=== PATIENT | female | born 1980 | race Caucasian/White ===

== ENCOUNTER 2019-09-30 19:57 | Emergency (ER) | payer OTHER, SELFPAY ==
[2019-09-30 20:16] VITALS: BP 152/84; PULSE 80; RESP 18; TEMP 36.8; O2SAT 100
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
[2019-09-30] MEDS: RABIES VACCINE (RABAVERT) 2.5 UNITS VIAL IM (21:28)
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
== END 2019-09-30 21:58 | disposition home or self-care (01) ==
LOC: ANHED 20:55
PROVIDERS: Emergency Provider Emergency Medicine Emergency Medical Services
DX: Z20.3 Contact with and (suspected) exposure to rabies (principal); Z23 Encounter for immunization
CPT/HCPCS: 90471; 90675; 99282

== ENCOUNTER 2021-02-10 08:00 | Outpatient (CLI) | payer OTHER, SELFPAY ==
--- NOTE | ~2021-02-10 | US_ITS ---
US right upper quadrant DATE: 02/10/2021 09:10 INDICATION: Elevated liver enzymes TECHNIQUE: Real-time imaging and Doppler analysis COMPARISON: 04/12/2012 MRI abdomen FINDINGS: The pancreatic head and tail are not optimally visualized; the pancreas is otherwise unrema rkable. 1.3 cm hyperechoic lesion of the liver consistent with 13 mm hemangioma reported on 04/12/2012 MRI abd omen examination. The liver is otherwise unremarkable. Normal hepatopedal portal venous flow directio n. No gallstones, gallbladder wall thickening or abnormal pericholecystic fluid collection. Negative son ographic Taylor's sign. The common bile duct measures 3.6 mm, normal. IMPRESSION: 13 mm hemangioma of the liver Reviewed, dictated and finalized at [facility]. Reviewed, dictated and finalized at location [facility].
--- NOTE | ~2021-02-10 | MM_ITS ---
EXAMINATION: MM screening patricio BI w ramone HISTORY: Screening mammogram TECHNIQUE: Craniocaudal and mediolateral oblique 3-D tomosynthesis images were obtained and synthetic 2-D images were generated. CAD analysis was submitted and interpreted. COMPARISON: None, baseline BREAST PARENCHYMAL COMPOSITION: The breasts are heterogeneously dense, which may obscure small masses . FINDINGS: RIGHT BREAST: There is a 10 mm circumscribed mass in the middle/posterior third of the outer breast 8 cm from the nipple. LEFT BREAST: There is no evidence of suspicious mass, calcification, or architectural distortion to s uggest malignancy. IMPRESSION: 1. Right breast mass. 2. Additional mammographic views and possible breast ultrasound are recommended to evaluate for malig samantha and establish a baseline given that this is the first mammographic examination. BI-RADS Category 0: Incomplete: Needs additional imaging evaluation. Reviewed, dictated and finalized at location A. IMPRESSION: 1. Right breast mass. 2. Additional mammographic views and possible breast ultrasound are recommended to evaluate for malignancy and establish a baseline given that this is the fir st mammographic examination. BI-RADS Category 0: Incomplete: Needs additional imaging evaluation.
== END 2021-02-10 08:01 | disposition home or self-care (01) ==
LOC: ANHIMG 08:03
PROVIDERS: PCP Nurse Practitioner Family; Visit Provider Nurse Practitioner Family
DX: Z12.31 Encounter for screening mammogram for malignant neoplasm of breast (principal); R94.5 Abnormal results of liver function studies; R92.8 Other abnormal and inconclusive findings on diagnostic imaging of breast
CPT/HCPCS: 76705; 77063; 77067

== ENCOUNTER 2021-03-24 11:58 | Outpatient (CLI) | payer OTHER, SELFPAY ==
--- NOTE | ~2021-03-24 | MMUS_ITS ---
EXAMINATION: MM diagnostic patricio RT w ramone, US breast RT limited HISTORY: Right breast mass on screening mammogram TECHNIQUE: Additional 3-D tomosynthesis images of the right breast were performed and synthetic 2-D i mages were generated. CAD analysis was submitted and interpreted. High resolution limited right breas t ultrasound was performed. COMPARISON: 02/10/2021 FINDINGS: MAMMOGRAPHIC FINDINGS: There is a 7 mm round, circumscribed, equal density mass in the middle third of the outer breast at t he 8:00 location 7.5 cm from the nipple. ULTRASOUND: There is a 7 mm cyst at the 8:00 location 7 cm from the nipple responding to the mammographic finding in question. IMPRESSION: 1. No mammographic or sonographic evidence of malignancy. 2. Recommend routine screening mammography in one year. BI-RADS Category 2: Benign finding(s). Reviewed, dictated and finalized at location A. IMPRESSION: 1. No mammographic or sonographic evidence of malignancy. 2. Recommend routine screening mammography in one year. BI-RADS Category 2: Benign finding(s).
== END 2021-03-24 11:59 | disposition home or self-care (01) ==
LOC: ANHIMG 12:02
PROVIDERS: PCP Nurse Practitioner Family; Visit Provider Nurse Practitioner Family
DX: R92.8 Other abnormal and inconclusive findings on diagnostic imaging of breast (principal)
CPT/HCPCS: 76642; 77061; 77065; G0279

== ENCOUNTER 2021-09-05 16:40 | Emergency (ER) | payer OTHER, SELFPAY ==
--- NOTE | 2021-09-05 16:53 | ED.GENADULT ---
HPI - General Adult General Chief complaint: Nausea/Vomiting/Diarrhea Stated complaint: diarrhea,vomiting Time Seen by Provider: 09/05/21 16:53 Source: patient Mode of arrival: ambulatory Limitations: no limitations History of Present Illness HPI narrative: 41-year-old female patient presents to the [facility] with complaints of diarrhea and vomiting since 4 AM this morning. Patient states she was exposed to somebody at work that had influenza. 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 Patient states she did not get her flu shot this year but is fully vaccinated against COVID. Patient was diagnosed with COVID last month. Patient does report a fever as high as 100 off and on today. Patient states she was able to keep down a little bit of Jell-O right before she came in today. Related Data Home Medications Medication Instructions Recorded Confirmed drospirenone (contraceptive) 4 mg PO DAILY 09/05/21 09/05/21 [Slynd] Allergies Allergy/AdvReac Type Severity Reaction Status Date / Time Penicillins Allergy Unknown Verified 09/05/21 17:17 Review of Systems Review of Systems: CONSTITUTIONAL: Positive subjective fever, denies chills, or sweats. EYES: Denies visual changes, redness, or discharge. ENT: Denies rhinorrhea, congestion, sore throat, or otalgia. CARDIOVASCULAR: Denies chest pain, palpitations, or edema. RESPIRATORY: Denies cough or dyspnea. GASTROINTESTINAL: Positive abdominal pain, nausea, vomiting, and diarrhea. GENITOURINARY: Denies dysuria or hematuria. SKIN: Denies rash or itching. MUSCULOSKELETAL: Denies back pain, joint pain, or myalgia. NEUROLOGIC: Denies headache, numbness, or weakness. PSYCHIATRIC: Denies anxiety or depression. [facility] Past Medical History Medical History (Updated 09/05/21 @ 17:34 by KRIHS Srivastava) ADHD Asthma Chronic back pain Crohn's disease Gestational diabetes Seasonal allergies Ulcer Surgical History Surgical History (Updated 09/05/21 @ 16:56 by KRISH Srivastava) Delivery by section Family History Family History Grandparent Family history of lung cancer Family history of heart disease in male family member before age 55 Social History Social History (Reviewed 09/05/21 @ 16:54 by SILVER Srivastava Smoking status: Never smoker Alcohol intake: never Gender identity (if verbalized by the patient): Female Comments At the time of my signature I agree with nursing past medical history, surgical, social, and family history. There is no relevant family history pertinent to the presenting complaint. Exam Narrative: GENERAL: Well-appearing, well-nourished, and in no acute distress. HEAD: Normocephalic, atraumatic. EYES: PERRLA and EOMI. ENT: Nares with erythema edema noted bilaterally, no rhinorrhea or epistaxis. Mucous membranes moist. Posterior pharynx no erythema, tonsillar lodgment, exudates or lesions present. NECK: Supple. No lymphadenopathy CHEST: Clear to auscultation. No respiratory distress. Patient able talk in clear complete sentences HEART: Regular rate and rhythm. No murmur heard. Normal peripheral pulses. ABDOMEN: Soft, nontender, nondistended, hyperactive active bowel sounds. EXTREMITIES: Normal range of motion. No edema. SKIN: Warm, dry, no rash. NEURO: No focal deficits. Alert and oriented x3. Course Course Level of Care: Express Care Visit Reevaluation(s) Reevaluation #1: Reevaluated patient notified her that her influenza test today is negative. Discussed with her we will give him some Zofran to help with the vomiting and she should make sure she gets plenty of fluids if she continues to have issues she will call her primary doctor for further evaluation. Date: 09/05/21 Time: 17:40 Vital Signs Vital signs: Vital Signs Temperature 37.1 C 09/05/21 16:58 Pulse Rate 115 H 09/05/21 16:58 Respiratory Rate 18 09/05/21 16:58 Blood Pressure 114/79 0
[2021-09-05 16:58] VITALS: BP 114/79; PULSE 115; RESP 18; TEMP 37.1; O2SAT 97
== END 2021-09-05 17:40 | disposition home or self-care (01) ==
PROVIDERS: Emergency Provider Nurse Practitioner Family; PCP Nurse Practitioner Family
DX: K52.9 Noninfective gastroenteritis and colitis, unspecified (principal); J45.909 Unspecified asthma, uncomplicated; K50.90 Crohn's disease, unspecified, without complications
CPT/HCPCS: 87804; 99213; G0463

== ENCOUNTER 2023-08-04 07:50 | Emergency (ER) | payer OTHER, MEDICAID, SELFPAY ==
--- NOTE | ~2023-08-04 | XR_ITS ---
Left ankle Technique: AP, oblique, and lateral views were obtained. Clinical History: Pain Findings: There is an acute, transverse, minimally displaced fracture the tip of the lateral malleolu s. No other fracture or dislocation seen. Ankle mortise and other visualized joint spaces are preserv ed. Soft tissues are otherwise unremarkable. Impression: Acute, transverse, minimally displaced fracture of the tip of the lateral malleolus. Reviewed, dictated and finalized at location M. LE DATABASE CONSULTANT Impression: Acute, transverse, minimally displaced fracture of the tip of the lateral malle olus.
[2023-08-04 07:54] VITALS: BP 134/94; PULSE 96; RESP 18; TEMP 36.6; O2SAT 100
--- NOTE | 2023-08-04 08:52 | ED.LOWEXIN ---
HPI - Extremity Injury (Lower) General Chief Complaint: Extremity Injury, Lower Stated Complaint: Left ankle sprain Time Seen by Provider: 08/04/23 08:03 History of Present Illness HPI Narrative: Patient is a 43-year-old female who presents ER with pain to left ankle. She was walking into work when she rolled her ankle and suffered an inversion injury. She has tenderness and swelling over lateral malleolus. No numbness or tingling. She did not fall and strike her head or suffer any additional injury. Related Data Home Medications Medication Instructions Recorded Confirmed drospirenone (contraceptive) 4 mg 4 mg PO DAILY 09/05/21 03/30/23 (28) tablet (Slynd) cholecalciferol (vitamin D3) 125 125 mcg PO WEEKLY 02/22/23 03/30/23 mcg (5,000 unit) capsule fluticasone 100 mcg-salmeterol 50 1 inh inhalation Q12H 02/22/23 03/30/23 mcg/dose blistr powdr for inhalation (Advair Diskus) Allergies Allergy/AdvReac Type Severity Reaction Status Date / Time No Known Allergies Allergy Verified 08/04/23 07:53 Review of Systems ENT: Reports system reviewed and no additional complaints, except as documented Musculoskeletal: Musculoskeletal: Reports arthralgias and Reports joint swelling Neurologic: Denies focal weakness and Denies numbness PMFSH Past Medical History Medical History ADHD Asthma Chronic back pain Crohn's disease Gestational diabetes Seasonal allergies Ulcer Surgical History Surgical History Delivery by section Family History Family History Grandparent Family history of lung cancer Family history of heart disease in male family member before age 55 Social History Social History Smoking status: Never smoker Alcohol intake: never Gender identity (if verbalized by the patient): Female Exam Narrative: GENERAL: Well-appearing, well-nourished, and in no acute distress. HEAD: Normocephalic, atraumatic. EXTREMITIES: Left ankle earlier with tenderness over the base of the lateral malleolus with crepitus. Neurovascular intact. No other point tenderness. NEURO: Alert and oriented x3. PSYCH: Normal mood and affect. Course Course Emergency Course: Patient informed of results. Stirrup splint applied. Neurovascular intact. Discharge with ortho follow-up. Vital Signs Vital signs: Vital Signs Temperature 98 F 08/04/23 07:54 Pulse Rate 96 08/04/23 07:54 Respiratory Rate 18 08/04/23 07:54 Blood Pressure 134/94 H 08/04/23 07:54 Pulse Oximetry 100 08/04/23 07:54 Oxygen Delivery Room Air 08/04/23 07:54 Temperature 98 F 08/04/23 07:54 Pulse Rate 96 08/04/23 07:54 Respiratory Rate 18 08/04/23 07:54 Blood Pressure 134/94 H 08/04/23 07:54 Pulse Oximetry 100 08/04/23 07:54 Oxygen Delivery Room Air 08/04/23 07:54 Procedures Orthopedic Splinting/Casting Injury #1: Splinting/Casting Date: 08/04/23 Splinting/Casting Time: 08:52 Side: left Lower Extremity Injury Location: ankle Lower Extremity Immobilizer: stirrup splint Splint: customized in ED OCL: stirrup Pre-Procedure Neuro Vascular Exam: normal Post-Procedure Neuro Vascular Exam: normal MDM - Extremity Injury (Lower) Imaging Data Radiologist's impression: ITS Impressions Ankle X-Ray 08/04/23 08:25 Impression: Acute, transverse, minimally displaced fracture of the tip of the lateral malleolus. Discharge Plan Discharge Clinical Impression: Ankle fracture, lateral malleolus, closed Patient Disposition: Home, Self-Care Condition: Stable Instructions: Ankle Fracture (ED), Crutch Instructions (ED) Additional Instructions: Bear weight as tolerated. Alter
[2023-08-04 10:21] VITALS: BP 125/80; PULSE 86; RESP 18; O2SAT 100
== END 2023-08-04 10:00 | disposition home or self-care (01) ==
LOC: ANHED 09:29
PROVIDERS: Emergency Provider Emergency Medicine; PCP Nurse Practitioner Family
DX: S82.62XA Displaced fracture of lateral malleolus of left fibula, initial encounter for closed fracture (principal); J45.909 Unspecified asthma, uncomplicated; K50.90 Crohn's disease, unspecified, without complications; X50.9XXA Other and unspecified overexertion or strenuous movements or postures, initial encounter
CPT/HCPCS: 29515; 73610; 99284

== ENCOUNTER 2023-10-21 12:13 | Outpatient (CLI) | payer OTHER, SELFPAY ==
[2023-10-21 12:42] LABS: Basophils Percent Auto 0.3 % (0.2-1.2); Eosinophils Absolute Auto 0.2 K/mm3 (0-0.3); Eosinophils Percent Auto 2.5 % (0-4.4); Hematocrit 41.3 % (37.0-47.0); Hemoglobin 13.4 g/dL (12.0-15.0); Immature Granulocyte Absolute 0.02 K/mm3 (0.00-0.031); Immature Granulocyte Percent A 0.3 % (0-0.5); Lymphocytes Absolute Auto 2.09 K/mm3 (0.9-3.2); Lymphocytes Percent Auto 34.6 % (18.3-44.2); Mean Corpuscular HGB Conc 32.4 g/dl (32-36); Mean Corpuscular Hemoglobin 30.7 pg (26-34); Mean Corpuscular Volume 94.5 fl (80-100); Mean Platelet Volume 9.7 fl (7.4-10.4); Monocytes Absolute Auto 0.3 K/mm3 (0.1-0.6); Monocytes Percent Auto 4.6 % (2.6-8.5); Neutrophils Absolute Auto 3.5 K/mm3 (1.3-6.7); Neutrophils Percent Auto 57.7 % (45.5-73.1); Platelet Count Result 295 k/mm3 (150-375); Red Blood Count 4.37 M/mm3 (4.2-5.4); Red Cell Distribution Width 11.9 % (11.5-14.5)
[2023-10-21 13:32] LABS: LDL Cholesterol Direct 77 mg/dL
[2023-10-21 13:36] LABS: Alanine Aminotransferase 38 U/L (6-35); Albumin Level 4.6 g/dL (3.5-5.1); Alkaline Phosphatase 58 U/L (38-126); Anion Gap 7 mmol/L (8-16); Aspartate Amino Transferase 33 U/L (14-36); Bilirubin,Total 0.7 mg/dL (0.2-1.3); Blood Urea Nitrogen 15 mg/dL (7-17); Calcium 9.6 mg/dL (8.4-10.2); Carbon Dioxide 24 mmol/L (22-30); Chloride 107 mmol/L (98-107); Cholesterol 130 mg/dL (0-200); Estimated Glomerular Filt Rate > 60; Glucose 97 mg/dL (65-110); HDL Direct 38 mg/dL; Potassium 3.7 mmol/L (3.4-5.0); Sodium 138 mmol/L (137-145); Triglycerides 89 mg/dL (<150)
[2023-10-21 13:54] LABS: Free T4 Free Thyroxine 1.01 ng/mL (0.78-2.19)
[2023-10-21 16:13] LABS: Hemoglobin A1C 5.2 % (<5.7)
== END 2023-10-21 12:14 | disposition home or self-care (01) ==
LOC: ANHLAB 12:16
PROVIDERS: PCP Nurse Practitioner Family; Visit Provider Physician Assistant
DX: Z00.00 Encounter for general adult medical examination without abnormal findings (principal); Z13.220 Encounter for screening for lipoid disorders; Z13.1 Encounter for screening for diabetes mellitus; Z13.29 Encounter for screening for other suspected endocrine disorder
CPT/HCPCS: 36415; 80053; 80061; 83036; 84439; 84443; 85025

== ENCOUNTER 2025-01-28 10:17 | Outpatient (CLI) | payer OTHER, SELFPAY ==
[2025-01-28 11:03] LABS: Hematocrit 41.6 % (37.0-47.0); Hemoglobin 13.7 g/dL (12.0-15.0); Mean Corpuscular HGB Conc 32.9 g/dl (32-36); Mean Corpuscular Hemoglobin 30.4 pg (26-34); Mean Corpuscular Volume 92.4 fl (80-100); Mean Platelet Volume 9.9 fl (7.4-10.4); Platelet Count Result 236 k/mm3 (150-375); Red Cell Distribution Width 11.8 % (11.5-14.5); White Blood Count 3.8 K/mm3 (4.5-10.0)
[2025-01-28 11:17] LABS: Cholesterol 140 mg/dL (0-200); HDL Direct 53 mg/dL; Triglycerides 58 mg/dL (<150)
[2025-01-28 11:25] LABS: Alanine Aminotransferase 24 U/L (6-35); Albumin Level 4.6 g/dL (3.5-5.1); Alkaline Phosphatase 44 U/L (38-126); Anion Gap 10 mmol/L (4-12); Aspartate Amino Transferase 26 U/L (14-36); Bilirubin,Total 0.9 mg/dL (0.2-1.3); Blood Urea Nitrogen 16 mg/dL (7-17); CRP. < 0.5 mg/dL (<1.0); Calcium 9.8 mg/dL (8.4-10.2); Carbon Dioxide 25 mmol/L (22-30); Chloride 104 mmol/L (98-107); Estimated Glomerular Filt Rate > 60; Glucose 88 mg/dL (65-110); Potassium 4.2 mmol/L (3.4-5.0); Sodium 139 mmol/L (137-145); Total Protein 7.8 g/dL (6.3-8.2)
[2025-01-28 11:28] LABS: LDL Cholesterol Direct 60 mg/dL
[2025-01-28 11:34] LABS: Erythrocyte Sedimentation Rate 8 mm/hr (0-20)
[2025-01-28 11:35] LABS: Free T4 Free Thyroxine. 1.41 ng/dL (0.78-2.19)
[2025-01-28 11:58] LABS: Hemoglobin A1C. 4.9 % (<5.7)
[2025-01-29 06:09] LABS: Progesterone. 0.5 ng/mL
[2025-01-29 19:38] LABS: DHEA-Sulfate. 239 mcg/dL (15-205); FSH 103.8 mIU/mL
[2025-01-31 15:08] LABS: Immunoglobulin A 202 mg/dL (47-310); TTG IGA AB <1.0 U/mL
== END 2025-01-28 10:18 | disposition home or self-care (01) ==
PROVIDERS: PCP Physician Assistant; Referring Provider Student in an Organized Health Care Education/Training Program; Visit Provider Nurse Practitioner Family
DX: Z00.00 Encounter for general adult medical examination without abnormal findings (principal); K50.00 Crohn's disease of small intestine without complications; R19.7 Diarrhea, unspecified; R10.9 Unspecified abdominal pain; N91.2 Amenorrhea, unspecified; Z13.220 Encounter for screening for lipoid disorders; Z13.1 Encounter for screening for diabetes mellitus; Z13.29 Encounter for screening for other suspected endocrine disorder
CPT/HCPCS: 36415; 80053; 80061; 82627; 82670; 82784; 83001; 83036; 84144; 84403; 84439; 84443; 85027; 85652; 86140

== ENCOUNTER 2025-03-23 07:55 | Outpatient (CLI) | payer OTHER, SELFPAY ==
--- OUTSIDE RECORDS SUMMARY | 2025-03-23 07:59 | XMS_ITS | Clinical Summary ---
Author Organization [facility] Address [address] [place] [id number] Care Team Providers Care Shell Reprint Operator Name Role Phone Unavailable Primary Care Provider Unavailabl e Immunizations Immunization Administration Dates Next Due MODERNA COVID-19 (12+) MRNA, LNP-S, PF, 100 MCG/ 0.5 ML DOSE 09/09/2020,08/12/2020 Social History Tobacco Use Types Packs/Day Years Used Date Smoking Tobacco: Never Assessed Comments Unknown Sex and Gender Information Value Date Recorded Sex Assigned at Not on file Legal Sex Female 7:51 PM CDT Gender Identity Not on file Sexual Orientation Not on file Plan of Treatment Health Maintenance Due Date Last Done Comments Cervical Cancer Screening Pap Smear (Age 30 to 64) Every 3 Years 1981 Annual Physical 01/08/1984 Hepatitis C 1999 Hepatitis B Vaccines (1 of 3 - 19+ 3-dose series) 01/08/2000 HPV Vaccines (1 - 3-dose SCDM series) 01/08/2008 Cervical Cancer Screening Pap with HPV Testing (Age 30 to 64) Every 5 Years 2011 Cervical Cancer Screening with HPV 2011 Mammogram Screening 2021 COVID-19 Vaccine ( season) 2024 09/09/2020, 08/12/2020 DTaP, Tdap and Td Vaccines (2 - Td or Tdap) 12/08/2027 12/07/2017, 04/18/1985, 07/29/1982, Additional history exists Meningococcal B Vaccine Aged Out No l onger eligible based on patient's age to complete this topic Meningococcal Vaccine Aged Out No maribell stefano eligible based on patient's age to complete this topic Pneumococcal Vaccine: Pediatrics (0 to 5 Years) and At-Risk Patients (6 to 49 Years) Aged Out No longer eligible based on patient's age to complete this topic RSV Immunizations Under 20 Months Aged Out No longer eligible based on patient's age to complete this topic
--- OUTSIDE RECORDS SUMMARY | 2025-03-23 07:59 | XMS_ITS | Clinical Summary ---
Author Organization [facility] Address [address] [place] [address] Phone Care Team Providers Care Bi Solutions Architect Name Role Phone Unavailable Primary Care Provider Unavailabl e Allergies Active Allergy Reactions Criticality Noted Date Comments Penicillins Rash,Swelling Low 04/07/2011 Medications levalbuterol (XOPENEX HFA) 45 MCG/ACT Aerosol take 2 Puffs by inhalation every 4 hours as needed. 1 Inhaler 0 6 Active Levonorgest-Eth Estrad -Day 0.15-0.03 MG Tablet 0 9 Active erythromycin with ethanol 2 % SolutionIndicat ions:Rosacea Apply sparingly to the affected area at night. 30 mL 0 Active Active Problems Problem Noted Date Diagnosed Date Rosacea 03/17/2016 Asthma 03/08/2016 Immunizations Immunization Administration Dates Next Due DTP Vaccine 04/18/1985, 2,1981,1980 Influenza Vaccine greater than 3 yrs 04/11/2019, 04/24/2018 MMR Vaccine 05/06/1993,08/13/1982 OPV 04/18/1985, 2,1981,1980 PUR FLU 3+ YRS PRES FREE QUAD IM 10/04/2016 TB Skin Test 03/26/2019,12/15/2017,12/07/2017 TDAP Vaccine 12/07/2017 Family History Medical History Relation Name Comments No Known Problems Brother 1 No Known Problems Brother 2 Cirrhosis Father non alcoholic Heart Attack Father Diabetes Maternal Aunt 1 Diabetes Maternal Aunt 2 Lung Cancer Maternal Grandmother Diabetes Maternal Uncle 1 Diabetes Maternal Uncle 2 Depression Mother Diabetes Mother Mental Disorder, Other Mother agora phobia, anxiety No Known Problems Sister 1 No Known Problems Sister 2 Relation Name Status Comments Brother 1 Alive Brother 2 Alive Father Maternal Aunt 1 Maternal Aunt 2 Maternal Grandmother Maternal Uncle 1 Maternal Uncle 2 Mother Alive Sister 1 Alive Sister 2 Alive Social History Tobacco Use Types Packs/Day Years Used Date Smoking Tobacco: Never Smokeless Tobacco: Never Tobacco Cessation:Counseling Given: Yes Alcohol Use Standard Drinks/Week Comments No 0 (1 standard drink = 0.6 oz pur e alcohol) PHQ-2 Answer Date Recorded PHQ-2 Score 0 04/03/2019 Comments No Sex and Gender Information Value Date Recorded Sex Assigned at Not on file Legal Sex Female 1:48 PM CDT Gender Identity Not on file Sexual Orientation Not on file Last Filed Vital Signs Vital Sign Reading Time Taken Comments Blood Pressure 110/72 11/24/2018 3:05 PM CDT Pulse 95 11/24/2018 3:05 PM CDT Temperature 36.8 C (98.2 F) 11/24/2018 3:05 PM CDT Respiratory Rate 16 11/24/2018 3:05 PM CDT Oxygen Saturation 95% 11/24/2018 3:05 PM CDT Inhaled Oxygen Concentration - - Weight 95 kg (209 lb 8 oz) 11/24/2018 3:05 PM CD T Height 175.3 cm (5' 9) 11/24/2018 3:05 PM CDT Body Mass Index 30.94 11/24/2018 3:05 PM CDT Plan of Treatment Health Maintenance Due Date Last Done Comments Hepatitis C Virus (HCV) Screening 1981 Hepatitis B Immunization (1 of 3 - 19+ 3-dose series) 01/08/2000 Pneumococcal Immunization Combined (1 of 2 - PCV) 01/08/2000 Pap Smear 2002 Human Papillomavirus (HPV) Immunization (1 - 3-dose SCDM series) 01/08/2008 Cervical Cancer Screening (CCS) 2011 HPV/Cotest 2011 SARS-COV-2 Immunization ( season) 2024 09/09/2020, 08/12/2020 Influenza Immunization (#1) 04/01/202504/01, 04/24/2018, 10/04/2016 DTaP/Tdap/Td Immunization (6 - Td or Tdap) 12/08/2027 12/07/2017, 04/18/1985, 07/29/1982, Additional history exists Td Immunization Every 10 Years (Adults With 1 Tdap) 12/08/2027 12/07/2017 Respiratory Syncytial Virus (RSV) Immunization (Adult) (1 - 1-dose 75+ series) 01/08/2056 Meningococcal Immunization (ACWY) Aged Out No longer eligible based on patient's age to complete this topic Rotavirus Immunization Aged Out No lo nger eligible based on patient's age to complete this topic Insurance MEDICAID [employer]
--- OUTSIDE RECORDS SUMMARY | 2025-03-23 07:59 | XMS_ITS | Clinical Summary ---
Author Organization [facility] Address [address] [place] [place] [address] Care Team Providers Care Hadoop Administrator Name Role Phone Kike Heaton MD Primary Care Provider [phone] Source Comments [facility],non-owned Affiliates and Associated Physician Practices is amultiple site organization consisting of ambulatory clinics and hospital sitesin [place], [place]. This disclosure is being madepursuant to the Care Everywhere program and may not contain all information available regarding this patient. Last updated 18.[facility] [employer] Allergies Active Allergy Reactions Criticality Noted Date Comments Penicillins Rash,Swelling Low 04/07/2011 Medications * Be aware that medications may not be up to date on this document. Alwaysverify current medications with the patient. levalbuterol (XOPENEX HFA) 45 MCG/ACT inhaler Inhale 2 Puffs by mouth every 6 hours. Active mesalamine CR (PENTASA) 500 MG capsule Take 500 mg by mouth 3 times daily. Active erythromycin (ERYDERM) 2 % solution 02/17/2018 Active Active Problems Problem Noted Date Diagnosed Date Finger mass, right 04/26/2018 Family History Medical History Relation Name Comments CAD (Coronary Artery Disease) Maternal Grandfather Cancer Maternal Grandmother lung Relation Name Status Comments Maternal Grandfather Maternal Grandmother Social History Tobacco Use Types Packs/Day Years Used Date Smoking Tobacco: Never Smokeless Tobacco: Never Alcohol Use Standard Drinks/Week Comments No 0 (1 standard drink = 0.6 oz pur e alcohol) Comments Unknown Sex and Gender Information Value Date Recorded Sex Assigned at Not on file Legal Sex Female 12:14 PM [employer] Gender Identity Not on file Sexual Orientation Not on file Last Filed Vital Signs Vital Sign Reading Time Taken Comments Blood Pressure 123/88 04/26/2018 9:25 AM CDT Pulse 98 04/26/2018 9:25 AM CDT Temperature 37.1 C (98.7 F) 04/26/2018 9:25 AM CDT Respiratory Rate - - Oxygen Saturation 93% 04/26/2018 9:25 AM CDT Inhaled Oxygen Concentration - - Weight 93.4 kg (206 lb) 04/26/2018 9:25 AM CDT Height 175.3 cm (5' 9) 04/26/2018 9:25 AM CDT Body Mass Index 30.42 04/26/2018 9:25 AM CDT Plan of Treatment Health Maintenance Due Date Last Done Comments LIPID TESTING 1981 MAMMOGRAM 1981 HIV SCREENING 01/08/1996 HEPATITIS C SCREENING 01/03/1999 DTAP/TDAP/TD VACCINES (1 - Tdap) 01/08/2000 HEPATITIS B VACCINE (1 of 3 - 19+ 3-dose series) 01/08/2000 HPV VACCINE (1 - 3-dose SCDM series) 01/08/2008 COVID-19 VACCINE (1 - 2023-2 5 season) 2024 DEPRESSION SCREENING 08/01/2024 INFLUENZA VACCINE (#1) 2025 8, 10/04/2016 ZOSTER VACCINE (1 of 2) 2031 HIB VACCINE Aged Out No longer eligi ble based on patient's age to complete this topic MENINGOCOCCAL (Group B) VACCINE SHARED DECISION-MAKING Aged Out No longer eligible based on patient's age to complete this topic MENINGOCOCCAL GROUPS A/C/Y/W VACCINE Aged Out No longer eligible b ased on patient's age to complete this topic PNEUMOCOCCAL VACCINE Aged Out No long er eligible based on patient's age to complete this topic [place] [address] [place] [address] [place] [address] [facility] Care Teams Hadoop Administrator Relationship Specialty Start Date End Date Kike Heaton MD PCP - General 04/26/18
[2025-03-26 07:08] LABS: Calprotectin, Fecal 82 ug/g (0-120)
== END 2025-03-23 07:56 | disposition home or self-care (01) ==
PROVIDERS: PCP Physician Assistant; Visit Provider Nurse Practitioner Family
DX: K50.00 Crohn's disease of small intestine without complications (principal)
CPT/HCPCS: 83993

== ENCOUNTER 2025-04-24 07:16 | Outpatient (CLI) | payer OTHER, SELFPAY ==
--- NOTE | ~2025-04-24 | US_ITS ---
US abdomen limited Indication: R10.9 - Unspecified abdominal pain Comparison: None Technique: Cordero-scale and color Doppler images were obtained. Findings: LIVER: Right lobe liver echogenic solid lesion 1.6 x 1.7 cm. . GALLBLADDER/BILIARY: Unremarkable.No cholelithiais, wall thickening or pericholecystic fluid. No biliary dilatation. CBD 4.3 mm. [place] sign negative. PANCREAS: Pancreas limited by bowel gas. Right Kidney: Right kidney was not imaged Impression: 1. No etiology to explain abdominal pain. 2. Probable liver hemangioma, correlate with LFTs. Contrast-enhanced MRI is suggested Reviewed, dictated and finalized at location A. Impression: 1. No etiology to explain abdominal pain. 2. Probable liver hemangioma, correlate with LFTs. Contrast-enhanced MRI is sug gested
--- NOTE | ~2025-04-24 | NM_ITS ---
EXAMINATION: [id number] DATE: 04/24/2025 10:46 INDICATION: Postprandial abdominal pain and bloating. COMPARISON: Ultrasound 04/24/2025 TECHNIQUE: 5.59 mCi Tc-99m mebrofenin (Choletec) was administered intravenously. Scintigraphic images of the abdomen were obtained for one hour. Then, the patient drank 8 oz Ensure, and imaging was continued for 60 minutes. FINDINGS: There is normal clearance of radiotracer from the blood pool. There is homogeneous tracer uptake by the liver. Activity progresses to the bowel and gallbladder. Gallbladder ejection fraction (GBEF) was 46%. Note that with this technique, normal GBEF >= 33%. IMPRESSION: 1. Normal hepatobiliary scintigraphy. Reviewed, dictated and finalized at location E.
== END 2025-04-24 07:17 | disposition home or self-care (01) ==
PROVIDERS: PCP Physician Assistant; Visit Provider Nurse Practitioner Family
DX: R10.9 Unspecified abdominal pain (principal); R14.0 Abdominal distension (gaseous)
CPT/HCPCS: 76705; 78226; A9537

== ENCOUNTER 2025-06-03 08:08 | Outpatient (CLI) | payer OTHER, SELFPAY ==
--- NOTE | ~2025-06-03 | MR_ITS ---
EXAMINATION: MR abdomen wo/w con DATE: 06/03/2025 09:19 INDICATION: Liver disease, unspecified. Liver mass. TECHNIQUE: Magnetic resonance imaging (MRI) of the abdomen was performed without and with 14 mL MultiHance intravenous contrast. COMPARISON: Abdomen MRI 04/12/2012, ultrasound 04/24/2025 FINDINGS: There is a 17 mm mass in right hepatic lobe with interrupted peripheral puddling of contrast, consistent with a hemangioma. The gallbladder, spleen, pancreas, adrenal glands, and kidneys are normal. There are no dilated loops of bowel. There are no pathologically enlarged lymph nodes. There is no ascites. IMPRESSION: 1. 17 mm hemangioma in the liver correlating with the ultrasound abnormality. Reviewed, dictated and finalized at location E. [facility]
--- OUTSIDE RECORDS SUMMARY | 2025-06-03 08:16 | XMS_ITS | Data Portability ---
Author Organization [facility], [place] Address [address] [place] [address] [place] [address] Assessment Encounter Date Assessment Date Assessment LastModified by Organization Details LastModified Time 12/22/2020 12/22/2020 Annual gynecological exam performed. Patient will come back in a year unless there are new symptoms. [email or web address] Not available 12/22/2020 10:56:56 Plan of Treatment Reminders Order Date Submit Date Provider Last Modified By Organization Details Last Modified Time Details Appointments None recorded. Lab urinalysis , dipstick 2020 021 [address], [address], [place], [address], 10:32:08 test, urine 2020 021 [email or web address] [place], [address], [place], [address], 11:46:38 Referral None recorded. Procedures None recorded. Surgeries None recorded. Imaging MAMMO, screening, digital, bilateral 2020 021 [email or web address] [facility] [facility], [address] [address], [place], [address], 10:18:14 Medication Orders Macrobid 100 mg capsule 2020 021 [facility] 168, [address], [address], 10:37:49 Pyridium 100 mg tablet 2020 021 [facility] 435, [address], [address], 10:37:50 Slynd 4 mg (28) tablet 2020 021 [facility] 435, [address], [address], 10:37:45 Slynd 4 mg (28) tablet 2020 021 [email or web address] 1 [facility] 435, [address], [address], 11:46:38 Patient TargetsNo targets recorded. Patient InstructionsNo instructions recorded. Reason for Referral None Reported. Results Created Date Observation Date Name Description Value Unit Range Abnormal Flag Note LastModifiedBy Organization Detail LastModifiedTime 12/23/19 21 12/22/2020 pap, IG + HR HPV image guided Pap, HPV regardless of Pap result SEE RESULT S BELOW CASE REPOR T: Cytol ogy Gynec ologi tere Repor t Case: [id number] Autho genoveva sanchez Provi douglas: Wilver Schwartz Colle cted: 12/22 1330 FLOOR REPRESENTATIVE Order ing Locat ion: [place] [facility] Recei tiffanie: 12/23 0018 First Scree n: Parth Luna ed, CT Speci men: Scree ana Pap - Image d, Cervi x STATE MENT OF ADEQU ACY: Satis facto ry for evalu ation Trans forma tion zone compo nent absen t FINAL DIAGN OSIS: Negat brandon for Intra epith elial Lesio n or Elzbieta velarde eriberto d by Parth Luna ed, CT on 2020 at 4:47 PM ----- ----- ----- ----- ----- ----- ----- ----- ----- ----- ----- ----- ----- ----- ----- ----- ----- ---- HPV RESUL TS: HPV mRNA E6/E7 : No HPV mRNA Detec rai NOTE: This high risk HPV mRNA assay detec ts fourt een high- risk HPV types (16, 18, 31, 33, 35, 39, 45, 51, 52, 56, 58, 59, 66, 68) witho ut diffe renti ation . CHART ABLE COMME NT: Note: This speci men was revie wed by a Cytot echno logis t and/o r Patho logis t (as indic ated in this repor t) after evalu ation using the Thinp rep Imagi ng Syste m. CLINI TERE INFOR MATIO N: Menst rual Statu s: LMP (if appli cable ): 2020 Clini tere Histo ry/Pr eviou s Pap: Type of Neopl shawn (if appli cable ): Other Histo ry: Hormo ambar (if appli cable ): PAP EDUCA ANTOINETTE L NOTE: The Pap Test is a scree ana test with an inher ent false negat brandon rate. Liqui d-bas e sampl ing may decre ase, but will not elimi hans, false negat brandon resul ts. A negat brandon resul t does not precl ude the prese nce and/o r devel opmen t of disea se, since the prese nce of abnor mal cells in the sampl e depen ds on the locat ion of the lesio n and sampl ing techn ique. Jolly nued regul ar scree ana is the best metho d of cance r preve ntion . If repor rai cytol ogic findi ng do not corre late with physi tere and/o r histo rical findi ngs, furth er inves tigat ion is recom stepan d, as clini catrachito soto nted. Not Available [facility] (Lab) [address], [place], [address], 12/23/2020 17:50:09 12/23/19 21 12/22/2020 pregn miguel test, urine HCG negati ve Not Available [address], [place], [address], 12/22/2020 11:43:41 03/24/20 21 03/24/2021 URINA LYSIS , WITH MICRO SCOPI C color, urine Yellow colorl ess, light yellow , yellow , dark yellow , straw Not Available [facility] (Lab) [address] [facility], [place], [address], 03/27/2021 00:08:52 03/24/20 21 03/24/2021 URINA LYSIS , WITH MICRO SCOPI C clarity, urine Clear Not Available [facility] (Lab) [address] [facility], [place], [address], 03/27/2021 00:08:52 03/24/20 21 03/24/2021 URINA LYSIS , WITH MICRO SCOPI C glucose, urine Negati ve mg/dL negati ve Not Available [facility] (Lab) [address] [facility], [place], [address], 03/27/2021 00:08:52 03/24/20 21 03/24/2021 URINA LYSIS , WITH MICRO SCOPI C bilirubin, urine Negati ve mg/dL negati ve Not Available [facility] (Lab) [address] [facility], [place], [address], 03/27/2021 00:08:52 03/24/20 21 03/24/2021 URINA LYSIS , WITH MICRO SCOPI C ketones, urine Negati ve mg/dL negati ve Not Available [facility] (Lab) [address] [facility], [place], [address], 03/27/2021 00:08:52 03/24/20 21 03/24/2021 URINA LYSIS , WITH MICRO SCOPI C pH, urine 7.0 . 5.0-9. 0 Not Available [facility] (Lab) [address] [facility], [place], [address], 03/27/2021 00:08:52 03/24/20 21 03/24/2021 URINA LYSIS , WITH MICRO SCOPI C specific gravity, urine 1.017 . 1.001- 1.035 Not Available [facility] (Lab) [address] [facility], [place], [address], 03/27/2021 00:08:52 03/24/20 21 03/24/2021 URINA LYSIS , WITH MICRO SCOPI C blood, urine Modera te negati ve abnormal Not Available [facility] (Lab) [address] [facility], [place], [address], 03/27/2021 00:08:52 03/24/20 21 03/24/2021 URINA LYSIS , WITH MICRO SCOPI C protein, urine 30 mg/dL negati ve abnormal Not Available [facility] (Lab) [address] [facility], [place], [address], 03/27/2021 00:08:52 03/24/20 21 03/24/2021 URINA LYSIS , WITH MICRO SCOPI C urobilinogen , urine <2.0 mg/dL <2.0 Not Available [facility] (Lab) [address] [facility], [place], [address], 03/27/2021 00:08:52 03/24/20 21 03/24/2021 URINA LYSIS , WITH MICRO SCOPI C nitrite, urine Positi ve negati ve abnormal Not Available [facility] (Lab) [address] [place], [address], 03/27/2021 00:08:52 03/24/20 21 03/24/2021 URINA LYSIS , WITH MICRO SCOPI C leukocyte esterase, urine Trace negati ve abnormal Not Available [facility] (Lab) [address] [place], [address], 03/27/2021 00:08:52 03/24/20 21 03/24/2021 URINA LYSIS , WITH MICRO SCOPI C WBC, urine 10-14 /hpf none, 0-5 abnormal Not Available [facility] ([facility]) [address] [facility], [place], [address], 03/27/2021 00:08:52 03/24/20 21 03/24/2021 URINA LYSIS , WITH MICRO SCOPI C RBC, urine 10-14 /hpf none, 0-2 abnormal Not Available [facility] ([facility]) [address] [facility], [place], [address], 03/27/2021 00:08:52 03/24/20 21 03/24/2021 URINA LYSIS , WITH MICRO SCOPI C bacteria, urine Trace /hpf none abnormal Not Available [facility] (Lab) [address] [facility], [place], [address], 03/27/2021 00:08:52 03/24/20 21 03/24/2021 URINA LYSIS , WITH MICRO SCOPI C squamous epithelial cells, urine None /hpf none Not Available [facility] (Lab) [address], [place], [address], 03/27/2021 00:08:52 03/24/20 21 03/24/2021 URINA LYSIS , WITH MICRO SCOPI C mucus, urine Trace /hpf none, trace, few Not Available [facility] ([facility]) [address] [facility], [place], [address], 03/27/2021 00:08:52 03/24/20 21 03/24/2021 CULTU RE: URINE result report SEE RESULT S BELOW abnormal Test: Cultu re: Urine Speci men Sourc e: Urine Voide d Speci men Type: Urine Speci men Date: 2020 4:19 PM Resul t Date: 2020 11:05 PM Resul t Statu s: Final resul t Abnor mal: Yes Resul emma Lab: [facility] [address] [facility] [address] Tel: CULTU RE ----- ----- ----- --- >100, 000 CFU/m l Esche cathi a coli (Abno rmal) SUSCE PTIBI LITY ----- ----- ----- --- Esche cathi a coli METHO D SANIYA ----- ----- ----- ----- ----- ---- ----- ----- ----- ----- ----- - AMIKA FRANCISCO <=16 ug/mL Susce ptibl e AMPIC ILLIN >16 ug/mL Resis tant AMPIC ILLIN /SULB ACTAM >16 ug/mL Resis tant AZTRE ONAM <=4 ug/mL Susce ptibl e CEFAZ RUPESH 16 ug/mL Inter media te CEFEP CARLOS <=2 ug/mL Susce ptibl e CEFOX ITIN <=8 ug/mL Susce ptibl e CEFTA ZIDIM E <=1 ug/mL Susce ptibl e CEFTR IAXON E <=1 ug/mL Susce ptibl e CIPRO FLOXA FRANCISCO <=1 ug/mL Susce ptibl e GENTA MICIN <=1 ug/mL Susce ptibl e LEVOF LOXAC IN <=0.2 5 ug/mL Susce ptibl e MEROP ENEM <=1 ug/mL Susce ptibl e NITRO FURAN TOIN <=32 ug/mL Susce ptibl e PIPER ACILL IN/TA ZOBAC CASTILLO 8 ug/mL Susce ptibl e TOBRA MYCIN <=1 ug/mL Susce ptibl e TRIME THOPR IM/CAMARA LFAME THOXA ZOLE <=2 ug/mL Susce ptibl e Not Available [facility] (Lab) [address], [place], [address], 03/27/2021 00:08:53 03/24/2003/24/2021 urina lysis , dipst ick Leukocytes + Not Available [address], [place], [address], 03/24/2021 10:31:14 03/24/20 21 03/24/2021 urina lysis , dipst ick Nitrite neg Not Available [place] [address], [place], [address], 03/24/2021 10:31:14 03/24/20 21 03/24/2021 urina lysis , dipst ick Urobilinogen neg Not Available [facility] [address], [place], [address], 03/24/2021 10:31:14 03/24/20 21 03/24/2021 urina lysis , dipst ick Protein 30 + Not Available [place] [address], [place], [address], 03/24/2021 10:31:14 03/24/20 21 03/24/2021 urina lysis , dipst ick pH 8 Not Available [place] [address], [place], [address], 03/24/2021 10:31:14 03/24/20 21 03/24/2021 urina lysis , dipst ick Blood +++ Not Available [place] [address], [place], [address], 03/24/2021 10:31:14 03/24/20 21 03/24/2021 urina lysis , dipst ick Specific [place] 1.005 Not Available [facility] [address], [place], [address], 03/24/2021 10:31:14 03/24/20 21 03/24/2021 urina lysis , dipst ick Ketone neg Not Available [place] [address], [place], [address], 03/24/2021 10:31:14 03/24/20 21 03/24/2021 urina lysis , dipst ick Bilirubin neg Not Available Bonita jiang [address], [place], [address], 03/24/2021 10:31:14 03/24/20 21 03/24/2021 urina lysis , dipst ick Glucose neg Not Available [place] [address], [place], [address], 03/24/2021 10:31:14 03/24/20 21 03/24/2021 urina lysis , dipst ick Appearance cloudy Not Available [facility] [address], [place], [address], 03/24/2021 10:31:14 03/24/20 21 03/24/2021 urina lysis , dipst ick Color straw Not Available [place] [address], [place], [address], 03/24/2021 10:31:14 Result Notes None recorded. Problems Name Problem SNOMED Code Status Onset Date Resolution Date Notes Provider Name and Address Organization Details Recorded Time Zayra weaver medical examinat ion Completed 201012/22/2020 Gynecolog ical Examinati on;Record ed Elsewhere : No Locati on: [facility] So urce: EHR Chron ic: N Practic e ID: 0001 Bill able Time: 10:45:00 AM Munira negrete [facility] 10:59:24 Vaginiti s and vulvovag initis Completed 201012/22/2020 Vaginitis ;Recorded Elsewhere : No Locati on: [facility] So urce: EHR Chron ic: N Practic e ID: 0001 Bill able Time: 10:45:00 AM Munira negrete [facility] 10:59:37 Screenin g for malignan t neoplasm of cervix Completed 201012/22/2020 Screening for malignant neoplasms of the cervix;Re corded Elsewhere : No Locati on: [facility] So urce: EHR Chron ic: N Practic e ID: 0001 Bill able Time: 10:45:00 AM Munira Torres [facility] 10:59:17 Threaten ed miscarri age [id number] Completed 201012/22/2020 Threatene d , antepartu m;Practic e ID: 0001 Munira Torres [facility] 10:59:25 Malaise and fatigue [id number] Completed 201012/22/2020 Fatigue And Malaise;P ractice ID: 0001 Munira Torres [facility] 10:59:03 Ill-defi nohemi intestin al infectio n Completed 201112/22/2020 No Show Fee;Pract ice ID: 0001 Munira Torres [facility] 10:58:55 Pregnanc y test positive [id number] Completed 201212/22/2020 examinati on or test, positive result;Re corded Elsewhere : No Locati on: [facility] So urce: EHR Chron ic: N Practic e ID: 0001 Bill able Time: 08:30:00 AM Munira Torres [facility] 10:59:11 Finding related to pregnanc y Completed 201212/22/2020 CERVICAL SHORTENIN G-ANTE;Re corded Elsewhere : No Locati on: [facility] So urce: EHR Chron ic: N Practic e ID: 0001 Bill able Time: 03:00:00 PM Munira Torres [facility] 10:58:49 Uterine size for dates discrepa ncy [id number] Completed 201212/22/2020 UTERINE SIZE VALENTINA-ANTEP AR;Practi ce ID: 0001 Munira negrete, [facility] 10:59:34 Ultrason ography Completed 201212/22/2020 screening for malformat ion using ultrasoni cs;Record ed Elsewhere : No Locati on: [facility] So urce: EHR Chron ic: N Practic e ID: 0001 Bill able Time: 04:00:00 PM Munira negrete [facility] 10:59:29 Antenata l screenin g Completed 201212/22/2020 screening for malformat ion using ultrasoni cs;Record ed Elsewhere : No Locati on: [facility] So urce: EHR Chron ic: N Practic e ID: 0001 Bill able Time: 04:00:00 PM Munira Torres [facility] 10:58:27 Congenit al malforma tion [id number] Completed 201212/22/2020 screening for malformat ion using ultrasoni cs;Record ed Elsewhere : No Locati on: [facility] So urce: EHR Chron ic: N Practic e ID: 0001 Bill able Time: 04:00:00 PM Munira negrete [facility] 10:58:39 Routine antenata l care Completed 201212/22/2020 Supervisi on of other normal ;Recorded Elsewhere : No Locati on: [facility] So urce: EHR Chron ic: N Practic e ID: 0001 Bill able Time: 02:00:[address] [facility] 10:59:15 Cervical incompet ence with antenata l problem [id number] Completed 201212/22/2020 Incompete nt Cervix Antepartu m Condition ;Recorded Elsewhere : No Locati on: [facility] So urce: EHR Chron ic: Y Practic e ID: 0001 Bill able Time: 02:00:00 PM Munira negrete [facility] 10:58:31 Prolapse of female genital organs [id number] Completed 201212/22/2020 Incompete nce or weakening of pubocervi tere tissue;Pr actice ID: 0001 [facility] 10:59:12 Deliveri es by [id number] Completed 201212/22/2020 delivery, without mention of indicatio n, unspecifi ed as to episode of care;Prac francis ID: 0001 Munira Torres [facility] 10:58:40 Female genital organ symptoms [id number] Completed 201212/22/2020 Unspecifi ed symptom associate d with female genital organs;Pr actice ID: 0001 Munira Torres [facility] 10:58:47 Complica tion related to pregnanc y Completed 201212/22/2020 Unspecifi ed antepartu m complicat ion;Pract ice ID: 0001 Munira Torres [facility] 10:58:35 Known OR suspecte d abnormal ity affectin g manageme nt of mother Completed 201212/22/2020 Unspecifi ed suspected abnormali ty, affecting managemen t of mother, unspecifi ed as to episode of care;Kirill rded Elsewhere : No Locati on: [facility] So urce: EHR Chron ic: N Practic e ID: 0001 Bill able Time: 11:00:00 AM Munira Torres [facility] 10:59:01 High risk pregnanc y care Completed 201212/22/2020 Supervisi on of unspecifi ed high-risk ;Recorded Elsewhere : No Locati on: [facility] So urce: EHR Chron ic: Y Practic e ID: 0001 Bill able Time: 10:30:00 AM Munira Torres null, [facility] 10:58:50 Complica tion of pregnanc y, childbir th and/or puerperi um [id number] Completed 201212/22/2020 Other current condition s classifia ble elsewhere of mother, antepartu m;Practic e ID: 0001 Munira negrete, [facility] 10:58:34 Threaten ed prematur e labor - not delivere d [id number] Completed 201212/22/2020 Threatene d premature labor, antepartu m;Practic e ID: 0001 Munira negrete, [facility] 10:59:27 Cervical incompet ence [id number] Completed 201212/22/2020 Incompete nce of cervix;Pr actice ID: 0001 Munira negrete, [facility] 10:58:29 Uterine scar from previous surgery in pregnanc y, childbir th and the puerperi um - delivere d [id number] Completed 201212/22/2020 Previous delivery, antepartu m condition or complicat ion;Pract ice ID: 0001 Munira negrete, [facility] 10:59:33 Single live from singleto n pregnanc y [id number] Completed 201212/22/2020 Mother with single liveborn; Practice ID: 0001 Munira negrete, [facility] 10:59:19 Postoper ative follow-u p visit Completed 201212/22/2020 Follow-up examinati on, following unspecifi ed surgery;R ecorded Elsewhere : No Locati on: [facility] So urce: EHR Chron ic: N Practic e ID: 0001 Bill able Time: 03:00:00 PM Munira negrete [facility] 10:59:04 Postpart um care Completed 201312/22/2020 Post Followup; Recorded Elsewhere : No Locati on: [facility] So urce: EHR Chron ic: N Practic e ID: 0001 Bill able Time: 03:15:00 PM Munira Torres [facility] 10:59:06 Insertio n of intraute rine contrace ptive device Completed 201312/22/2020 INSERTION OF IUD;Recor ded Elsewhere : No Locati on: [facility] So urce: EHR Chron ic: N Practic e ID: 0001 Bill able Time: 03:00:00 PM Munira [facility] 10:58:57 Family planning surveill ance Completed 201312/22/2020 Contracep tive surveilla nce, unspecifi ed;Record ed Elsewhere : No Locati on: [facility] So urce: EHR Chron ic: N Practic e ID: 0001 Bill able Time: 01:45:00 PM Munira [facility] 10:58:46 Uses IUD (intraut erine device) contrace ption [id number] Completed 201312/22/2020 Surveilla nce of intrauter ine contracep tive device;Pr actice ID: 0001 Munira [facility] 10:58:58 Conducti on disorder of the heart [id number] Completed 201312/22/2020 Bradycard ia;Record ed Elsewhere : No Locati on: [facility] So urce: EHR Chron ic: N Practic e ID: 0001 Bill able Time: 03:02:35 PM Munira [facility] 10:58:37 Human papillom a virus infectio n [id number] Completed 201412/22/2020 HPV infection ;Recorded Elsewhere : No Locati on: [facility] So urce: EHR Chron ic: N Practic e ID: 0001 Bill able Time: 10:30:00 AM Munira negrete [facility] 10:58:52 Adult health examinat ion Completed 201412/22/2020 Routine general medical examinati on at a health care facility; Practice ID: [address] [facility] 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 10:59:22 Acetonur ia [id number] Completed 201712/22/2020 Acetonuri a;Recorde d Elsewhere : No Locati on: [facility] So urce: EHR Chron ic: N Practic e ID: 0001 Bill able Time: 01:00:[address] [facility] 10:58:24 Uses combined oral contrace ption [id number] Completed 201812/22/2020 Encounter for initial prescript ion of contracep tive pills;Rec orded Elsewhere : No Locati on: [facility] So urce: EHR Chron ic: N Practic e ID: 0001 Bill able Time: 03:00:[address] [facility] 10:58:32 Removal of intraute rine device Completed 201812/22/2020 Encounter for removal of intrauter ine contracep tive device;Pr actice ID: [address] [facility] 10:59:[address] Concept Completed 201812/22/2020 Encntr for general adult medical exam w/o abnormal findings; Recorded Elsewhere : No Locati on: [facility] So urce: EHR Chron ic: N Practic e ID: 0001 Bill able Time: 02:30:[address] [facility] 10:59:21 Evaluati on finding Completed 201812/22/2020 Hematuria , unspecifi ed;Record ed Elsewhere : No Locati on: [facility] So urce: EHR Chron ic: N Practic e ID: 0001 Bill able Time: 08:45:[address] [facility] 10:58:42 Urinary tract infectio us disease [id number] Completed 201812/22/2020 UTI;Recor ded Elsewhere : No Locati on: [facility] So urce: EHR Chron ic: N Practic e ID: 0001 Bill able Time: 08:45:00 AM Munira Torres [facility] 10:59:30 Pregnanc y test negative [id number] Completed 201812/22/2020 Encounter for test, result negative; Recorded Elsewhere : No Locati on: [facility] So urce: EHR Chron ic: N Practic e ID: 0001 Bill able Time: 10:30:[address] [facility] 10:59:08 Human papillom avirus deoxyrib onucleic acid detected , high risk on cervical specimen [id number] Completed 201812/22/2020 Cervical high risk HPV DNA test positive; Recorded Elsewhere : No Locati on: [facility] So urce: EHR Chron ic: N Practic e ID: 0001 Bill able Time: 10:30:[address] [facility] 10:58:54 Evaluati on finding Completed 201812/22/2020 Unsp abnormal cytolog findings in specmn from cervix uteri;Rec orded Elsewhere : No Locati on: [facility] So urce: EHR Chron ic: N Practic e ID: 0001 Bill able Time: 10:30:00 AM [facility] 1 10:58:44 Problem Notes None recorded. Procedures Surgical History Date Name Laterality Status Provider Name and Address Organization Details Recorded Time 1 Date of Last Pap Smear completed [facility] 03/24/2021 10:32:39 9 Colposcopy completed [facility] 03/24/2021 10:34:50 3 delivery completed [facility] 12/22/2020 11:10:15 9 completed [facility] 12/22/2020 10:57:18 9 Date of Last Colonoscopy completed [facility] 12/22/2020 10:57:18 8 Caesarean Section completed [facility] 12/22/2020 11:09:59 Colonoscopy completed [facility] 12/22/2020 10:57:30 Imaging Results None recorded. Procedure Notes None recorded. Medical Equipment None Reported. Allergies Allergen ID Allergen Name Allergen Category Reaction Reaction Severity Criticality Documentation Date Start Date Code Code System Note Provider Name and Address Organization Details Recorded Time 33433 Product containin g penicilli n (product) medicatio n Not available Not available Not available 07/18/2020 55516 8001 SNOMED Comme nt: Locat ion: Janieleticia gonsalez [facility]; [facility] Available [facility] 14:20:49 Medications Name Sig Start Date Stop Date Status Note LastModified by Organization Details LastModified Time Prometriu m 200 mg capsule take 1 capsule (200MG) by Vaginal route every day 01/14 completed Prescrib ed Elsewher e: No Locat ion: Bonita jiang [facility] odify By: tgingric h Encoun ter DateTime : 01/04/20 13 04:15:00 PM Not Available Not Available Not Available Mirena 21 mcg/24 hr (up to 8 years) 52 mg intrauter ine device 1 iud for 5 years 10/31 completed Prescrib ed Elsewher e: No Locat ion: [facility] odify By: [email or web address] Encount er DateTime : 11/01/19 19 03:00:00 PM Not Available Not Available Not Available Pentasa 250 mg capsule,c ontrolled release take 4 capsule by oral route 4 times every day 07/04 completed Prescrib ed Elsewher e: Yes Loca tion: [facility] odify By: [email or web address] luna DateTime : 04/20/20 11 10:45:00 AM Not Available Not Available Not Available azithromy francisco 250 mg tablet TAKE 2 TABLETS BY MOUTH ON DAY 1 AND THEN TAKE 1 TABLET BY MOUTH ONCE A DAY ON DAY 2 THROUGH DAY 5 12/22 completed Not Available Not Available Not Available albuterol sulfate 1.25 mg/3 mL solution for nebulizat ion inhale 3 millilit er by inhalati on route 3- 4 times every day via nebulize r active Prescrib ed Elsewher e: Yes Loca tion: [facility] odify By: inga luna DateTime : 09/28/19 18 01:00:00 PM Not Available Not Available Not Available bacitraci n zinc 500 unit/gram topical ointment APPLY TOPICALL Y TO THE AFFECTED AREA 1 TO 2 TIMES DAILY active Not Available Not Available No t Available Procardia 10 mg capsule take 1 capsule (10MG) by oral route 3 times every day 07/04 completed Prescrib ed Elsewher e: No Locat ion: [facility] odify By: vicky luna DateTime : 02/07/20 13 10:34:01 AM Not Available Not Available Not Available Metrogel Vaginal 0.75 % (37.5 mg/5 gram) insert 1 applicat orful (37.5MG) by vaginal route every day at bedtime 07/04 completed Prescrib ed Elsewher e: No Locat ion: [facility] odify By: vicky Jiang ncounter DateTime : 04/28/20 11 04:41:13 PM Not Available Not Available Not Available Zoloft 50 mg tablet take 1 tablet (50MG) by oral route every day 07/04 completed Prescrib ed Elsewher e: No Locat ion: [facility] odify By: vicky Jiang ncounter DateTime : 05/04/20 13 10:30:00 AM Not Available Not Available Not Available phenazopy ridine 100 mg tablet Take 1 tablet 3 times a day by oral route as needed for 7 days. active Not Available Not Available No t Available Advair Diskus 250 mcg-50 mcg/dose powder for inhalatio n INHALE 1 PUFF BY MOUTH TWICE DAILY active Not Available Not Available No t Available ergocalci ferol (vitamin D2) 1,250 mcg (50,000 unit) capsule TAKE 1 CAPSULE BY MOUTH EVERY WEEK active Not Available Not Available No t Available ibuprofen 600 mg tablet take 1 tablet (600MG) by oral route every 6 hours as needed with food 08/02 completed Prescrib ed Elsewher e: No Locat ion: [facility] odify By: francoise Chungo unter DateTime : 06/26/20 13 01:30:00 PM Not Available Not Available Not Available methylpre dnisolone 4 mg tablets in a dose pack 12/22 completed Not Available Not Available Not Available Terazol 7 0.4 % vaginal cream insert 1 applicat orful by vaginal route every day for 7 days at bedtime 08/22 completed Prescrib ed Elsewher e: No Locat ion: [facility] odify By: regan Jiang ncounter DateTime : 08/12/19 15 10:30:00 AM Not Available Not Available Not Available Appleton 5 mg-325 mg tablet take 1 tablet by oral route every 6 hours as needed for pain 08/02 completed Prescrib ed Elsewher e: No Locat ion: [facility] odify By: francoies vila Enco unter DateTime : 06/26/20 13 01:30:00 PM Not Available Not Available Not Available fluticaso ne propionat e 50 mcg/actua tion nasal spray,osman pension SHAKE LIQUID AND USE 1 TO 2 SPRAYS IN EACH NOSTRIL TWICE DAILY active Not Available Not Available No t Available Xopenex 0.31 mg/3 mL solution for nebulizat ion 09/28 completed Prescrib ed Elsewher e: Yes Loca tion: [facility] odify By: inga Jiang ncounter DateTime : 04/20/20 11 10:45:00 AM Not Available Not Available Not Available Bactrim DS 800 mg-160 mg tablet take 1 tablet by oral route every 12 hours 10/31 completed Prescrib ed Elsewher e: No Locat ion: [facility] odify By: [email or web address] Encount er DateTime : 09/28/19 18 01:00:00 PM Not Available Not Available Not Available erythromy francisco with ethanol 2 % topical solution APPLY SPARINGL Y TOPICALL Y TO AFFECTED AREA ONCE DAILY AT NIGHT 12/22 completed Not Available Not Available Not Available nitrofura ntoin monohydra te/macroc rystals 100 mg capsule take 1 capsule by oral route every 12 hours with food x 7 days active Not Available Not Available No t Available erythromy francisco 03/24 completed Not Available Not Available Not Available Seasoniqu e 0.15 mg-30 mcg (84)/10 mcg(7) tablets,3 month dose pack take 1 tablet by oral route every day 12/22 completed Prescrib ed Elsewher e: No Locat ion: [facility] odify By: marsha quinonez DateTime : 07/18/20 19 03:22:03 PM Not Available Not Available Not Available Quasense 0.15 mg-30 mcg (91) tablets,3 month dose pack take 1 tablet by oral route every day 12/22 completed Prescrib ed Elsewher e: No Locat ion: [facility] odify By: marsha quinonez DateTime : 01/30/20 19 09:32:18 AM Not Available Not Available Not Available Symbicort 160 mcg-4.5 mcg/actua tion HFA aerosol inhaler INHALE 2 PUFFS BY MOUTH TWICE DAILY active Not Available Not Available No t Available Fish Oil 360 mg-1,200 mg capsule 08/12 completed Prescrib ed Elsewher e: Yes Loca tion: [facility] odify By: ann quinonez DateTime : 04/20/20 11 10:45:00 AM Not Available Not Available Not Available Triveen-D uo DHA 29 mg-1 mg-400 mg oral pack take 1 by Oral route every day 08/12 completed Prescrib ed Elsewher e: No Locat ion: [facility] odify By: ann quinonez DateTime : 04/04/20 13 02:36:58 PM Not Available Not Available Not Available Slynd 4 mg (28) tablet Take 1 tablet every day by oral route. 2023 active Not Available Not Available Not Avai lable Vitals Date Recorded Systolic And Diastolic Provider Name and Address Organization Details Last Updated DateTime 12/22/2020 133/80 mm[Hg] Jennifer Atkins [facility] [address], [place], [address], [facility] 12/22/2020 11:40:34 Date Recorded Body height Body mass index (BMI) Body weight Provider Name and Address Organization Details Last Updated DateTime 12/22/2020 168.91 cm 34.3 kg/m2 01425.95 g Munira Torres [facility] 12/22/2020 11:07:32 Date Recorded Systolic And Diastolic Provider Name and Address Organization Details Last Updated DateTime 03/24/2021 126/83 mm[Hg] Jennifer Atkins [facility] [address], [place], [address], [facility] 03/24/2021 10:40:55 Date Recorded Body height Body mass index (BMI) Body weight Provider Name and Address Organization Details Last Updated DateTime 03/24/2021 168.91 cm 34.7 kg/m2 68223.14 g Munira Torres [facility] 03/24/2021 10:27:10 Social History Question Answer Notes LastModified by Organizat ion Details LastModified Time Tobacco Smoking Status Never Smoker Munira Torres [facility] 03/24/2021 10:27:21 Do You Have An Advance Directive? No Information n ot available 03/24/2021 How Many Years Have You Consumed Alcohol? 15 Information not available 03/24/2021 Are You Blind Or Do You Have Difficulty Seeing? No Information n ot available 03/24/2021 What Is Your Level Of Caffeine Consumption? Heavy Information not available 03/24/2021 How Much Tobacco Do You Chew? None Information not available 03/24/2021 In The 14 Days Before Symptom Onset, Have You Had Close Contact With A Laboratory-confirm ed COVID-19 While That Case Was Ill? No Information n ot available 03/24/2021 In The 14 Days Before Symptom Onset, Have You Had Close Contact With A Person Who Is Under Investigation For COVID-19 While That Person Was Ill? No Information not available 03/24/2021 Have You Been To An Area Known To Be High Risk For COVID-19? No Information not available 03/24/2021 Are You Deaf Or Do You Have Serious Difficulty Hearing? No Information not available 03/24/2021 What Type Of Diet Are You Following? REGULAR Information n ot available 03/24/2021 What Is The Highest Grade Or Level Of School You Have Completed Or The Highest Degree You Have Received? [id number] Information not available 03/24/2021 Are There Any Guns Present In Your Home? Yes Information not available 03/24/2021 Do You Use Protection During Sex? No Information not available 03/24/2021 Do You Use Your Seat Belt Or Car Seat Routinely? Yes Information not available 03/24/2021 Do You Have Smoke And Carbon Monoxide Detectors In Your Home? Yes Information not available 03/24/2021 How Much Tobacco Do You Smoke? No Information not available 12/22/2020 Do You Use Sunscreen Routinely? No Information not available 03/24/2021 Have You Used IV Drugs? No Information not available 03/24/2021 Sex: Unknown Functional Status Question Answer Note LastModified by Organizat ion Details LastModified Time Do you use any illicit or recreational drugs? No Information not available 03/24/2021 What is your level of alcohol consumption? Occasional Information not available 03/24/2021 Are you able to walk independently without assistance or assistive devices? 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 None Information not available 03/24/2021 Mental Status Question Answer Note LastModified by Organization D etails LastModified Time Do you feel stressed (tense, restless, nervous, or anxious, or unable to sleep at night)? [id number] Information not available 03/24/2021 Family History Relationship Description Onset Age of this Age Resolved Age Notes LastModified by Organization Details LastModified Time Maternal Uncle Diabetes mellitus Not available 2020 10:57:14 Maternal Aunt Diabetes mellitus Not available 2020 10:57:14 Maternal Aunt Heart disease Not available 2020 10:57:14 Maternal Grandmother Heart disease Not available 2020 10:57:14 Maternal Grandmother Malignant neoplasm of lung Not available 2020 10:57:14 Mother Anxiety disorder Not available 2020 10:57:14 Mother Myocardial infarction Not available 12/22 10:57:14 Mother Heart disease Not available 2020 10:57:14 Mother Kidney disease Not available 2020 10:57:14 Mother Diabetes mellitus Not available 2020 10:57:14 Sister Anxiety disorder Not available 2020 10:57:14 Medical History Condition Response Allergies (Food, seasonal, environmental ) Y History of abnormal pap Y Dermatologic Disorders Y Asthma Y GI Problems Y Gynecological History Statement/Question Response Flow Moderate Date of LMP 03/13/2021 N Was last menstrual period normal N STIs/STDs Y Date of control 06/01/2020 Date of Last Colonoscopy 11/29/2008 BCPs Desired Control Method BCPs Abnormal Pap Y On BCP's at Conception? N Colposcopy 01/25/2019 HPV Vaccine N Duration of Flow (days) 6 Current Control Method BCPs Age at First Child 28 Frequency of Cycle (Q days) 30 Sexually Active? Y Menses Monthly Y Age of first menstrual cycle 12 Date of Last Pap Smear 12/22/2020 Sexual Problems? N LMP Approximate 11/29/2008 N 08/01/2019 Obstetrics History GPAL:G 2 P 1 1 0 1 Type Value Full Term 1 Premature 1 Living 1 Total 2 Past Encounters Encounter ID Performer Location Encounter Start Date Encounter Closed Date Diagnosis/Indication Diagnosis SNOMED-CT Code Diagnosis ICD10 Code Diagnosis IMO Codes Diagnosis Note [id number] Jennifer Atkins [facility] [address] [address] 12/22/2020 10:51:07 12/22/2020 12:01:19 Gynecologic examination 06927146 Z01.419 Take Calcium with Vitamin D 1200mg daily if not receiving in daily diet. It is strongly advised to have an annual flu shot and up can obtain at most pharmacies . If you have not had a TDap shot in the last 10 years you should obtain one as well. Discussed with patient & provided with informatio n regarding Gardisil vaccine to prevent the 4 strains for HPV that cause cervical cancer if under age 26. Encourage safe sexual practices, to use condoms and limit partners if not already in a monogamous relationsh ip. Do monthly self breast exams. Have mammogram yearly or every other year depending on family history. BRCA testing is now available for patients with strong genetic history of female cancer. If interested contact the office. Engage in daily exercise of low impact aerobic exercise 45-60 minutes 4-5 times weekly. Avoid tobacco and illicit drugs as well as using moderation with alcohol intake less than 1-2 8 oz beverages daily. This lifestyle behavior pattern will lead to less health conditions and longer life span. If BMI greater than 25 weight watchers or dietary consult advised. Patient received above instructio ns, and questions have been answered. If you have any questions please call or respond to this email. Patient was made aware of the patient portal and may obtain a paper copy of today's plan if desired. Last pap/hpv is wnl pap but +HPV HR/16 Colpo neg 2020 R/P pap/hpv sent this year. Declined std screening Mammo ordered Contracept ion care management [id number] Z30.9 We agreed to switch to a POP due to Hx of Crohns & elevated BP although not diagnosed with HTN. 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 She is SA but not regularly. She has taken 2 UPT's at home in October & November this week but both negative. Her UPT today is negative. Ok to start POP. Continue to Use condoms x 4wks as back up method. Discussed all control options in great detail. Pt would like to start POP. She is aware of the risks and benefits. She has contraindi cations to use of OCP or other estrogen containing hormonal therapy. Pt will start her pills on the first tuesday following the start of her period. She is aware it is not effective for control the first month. She is also aware of the importance of taking at the same time every day. Encouraged use of condoms as the pill does not protect against STD's. Will return in 3 months for med check. Consent was read and signed. Pt verbalized understand ing. Screening mammography 440922 Z12.31 Screening procedure 2012 5006 Z13.9 [id number] PERRY [facility] [address] [address] 03/24/2021 09:52:09 03/24/2021 12:02:20 Urinary symptoms 448386370 R39.9 Urine sent for culture & microscopy Rx sent Contracept ion care management [id number] Z30.9 Patient is here today for a medicaton check of control. She voices goals of therapy have been met with use of this therapy. She denies neg side effects. She is eating, drinking, sleeping well; moods are stable & periods are well regulated. Wishes to continue this method of BC. Appropriat e to continue this medication . Time spent in visit is a total of 15 mins with at least 50% of visit consisting of counseling and review of plan of care. Additional precaution areli measures were taken to minimize potential exposure to the Covid-19 virus during this patient s visit, including available hand manager fleet upon arrive, temperatur e check and being asked a series of screening questions. All staff wore face coverings during this encounter, as well as provided additional cleaning and sanitizing of all surfaces, including countertop s, pens, chairs, door handles, light switches, etc, prior to and following the patient s visit. Health Concerns Section Related Observation LastModified by Organization Detai ls LastModified Time None Recorded Concern Status LastModified by Organization Details LastModified Time None Recorded Advance Directives Directive N: Payers Insurance Date Sequence Insurance Name Policy Number Policy Vieira Covered Member ID Vieira Member ID Guarantor Name 03/23/2021 1 [facility] PRIOR TO 01/29/2021 (MEDICAID REPLACEMENT - HMO) Radha Roles [id number] Radha Roles 03/23/2021 1 [facility] ON OR AFTER 01/29/21 (MEDICAID REPLACEMENT - HMO) Radha Roles [id number] Radha Roles Notes Date Note Type Note Provider Name and Address Organization Details Recorded Time 1 text/html Annual GYNReported by PatientGenitourinary symptomsFor menstrual cycle, patient reportsnormal menses (monthly q32d lasting 5 days, minimal cramping; moderate flow.)(lmp 10/13/2020.under a lot of stress with school & crohn's flare up.). For urinary symptoms, patient reportsno hematuriaandno incontinence. For vulva, patient reportsno genital lesion. For vagina, patient reportsnormal vaginal discharge.Breast symptomsFor breast, patient reportsno breast pain,no breast lump, andno nipple discharge.ContraceptionFo r current contraception, patient reportsoral contraceptives (ran out last month but wants to restart seasonique. using condoms.)andcondoms.Endoc rine symptomsFor sexual complaints, patient reportsno sexual complaints,no pain during intercourse, andnormal libido. For menopausal symptoms, patient reportsno menopausal symptomsandnormal vaginal lubrication.Psychological symptomsFor psychological symptoms, patient reportsno depression,no anxiety, andno pmdd.Preventative measuresFor preventive measures, patient reportsencourage self breast examination,encourage regular exercise,encourage no tobacco use,encourage regular mammograms starting age 40,history of abnormal pap smear/cervical dysplasia, andneeds to schedule mammogram. Jennifer Atkins [facility] [address], [place], [address], [facility] 12/22/2020 11:48:00 1 text/html ROS as noted in the HPI Patient is here today for a medicaton check of control. She voices goals of therapy have been met with use of this therapy. She denies neg side effects. She is eating, drinking, sleeping well; moods are stable & periods are well regulated. Wishes to continue this method of BC. Appropriate to continue this medication. In addition, Urinary urgency, frequency & dysuria for past 2 days. Thinks has a UTI. SA but not concerned with STD. Jennifer Atkins [facility] [address], [place], [address], [facility] 03/24/2021 10:43:11 OBGyn Episode Ob Episode Information Episode Created Date Number of Fetuses Patient Bloodtype Patient rh Status Prepregnancy Weight lbs Domestic Partner Domestic Partner Phone Father Name Boat Washer Status 12/23/19 21 1 CLOSED Fetus Data First Name Last Name Admitted to NICU Weight (g) Sex Living Outcome Pediatric Complications Fetus ID Race Codes Race Delivery Type M Prematur e [id number] Primary Ramy Calculation Initial Ramy Date Initial Exam Date Initial Exam Provider Initial Ultrasound Date Last Menstrual Period Date Ultra Sound Weeks Gestation 0 Eighteen To Twenty Week Ramy Update Ultra Sound Date Fundal Height At Umbil Quickening Date Ultra Sound Latest Weeks Gestation Final Ramy Confirmed By Final Ramy Confirmed Date Final Ramy Date Ultra Sound Latest Days Gestation 0 0 Menstrual History Last Menstrual Date Menses Monthly On Bcp Conception Prior Menses Frequency Hcg Plus Date Menarche Onset Age Delivery Information Delivery Date Delivery Type Labor Anesthesia Weeks Gestation Incision Type Labor Labor Length Hrs Delivered By Post Complications Tubal Sterilization Discharge Date Comments 8 36 Discharge Information Feeding Method Contraceptive Method Maternal HG B and HCT Levels Ob Episode Information Episode Created Date Number of Fetuses Patient Bloodtype Patient rh Status Prepregnancy Weight lbs Domestic Partner Domestic Partner Phone Father Name Boat Washer Status 12/23/19 21 1 CLOSED Fetus Data First Name Last Name Admitted to NICU Weight (g) Sex Living Outcome Pediatric Complications Fetus ID Race Codes Race Delivery Type M Full Term 9989 Repeat Ramy Calculation Initial Ramy Date Initial Exam Date Initial Exam Provider Initial Ultrasound Date Last Menstrual Period Date Ultra Sound Weeks Gestation 0 Eighteen To Twenty Week Ramy Update Ultra Sound Date Fundal Height At Umbil Quickening Date Ultra Sound Latest Weeks Gestation Final Ramy Confirmed By Final Ramy Confirmed Date Final Ramy Date Ultra Sound Latest Days Gestation 0 0 Menstrual History Last Menstrual Date Menses Monthly On Bcp Conception Prior Menses Frequency Hcg Plus Date Menarche Onset Age Delivery Information Delivery Date Delivery Type Labor Anesthesia Weeks Gestation Incision Type Labor Labor Length Hrs Delivered By Post Complications Tubal Sterilization Discharge Date Comments 3 40 Discharge Information Feeding Method Contraceptive Method Maternal HG B and HCT Levels
== END 2025-06-03 08:09 | disposition home or self-care (01) ==
PROVIDERS: PCP Student in an Organized Health Care Education/Training Program; Visit Provider Nurse Practitioner Family
DX: K76.9 Liver disease, unspecified (principal)
CPT/HCPCS: 74183; A9577

== ENCOUNTER 2025-06-05 08:06 | Outpatient (CLI) | payer OTHER, SELFPAY ==
--- NOTE | ~2025-06-05 | MM_ITS ---
EXAMINATION: MM screening patricio BI w ramone HISTORY: Screening TECHNIQUE: Craniocaudal and mediolateral oblique 3-D tomosynthesis images were obtained and synthetic 2-D images were generated. CAD analysis was submitted and interpreted. COMPARISON: 02/10/2021 BREAST PARENCHYMAL COMPOSITION: There are scattered areas of fibroglandular density. FINDINGS: There is no evidence of suspicious mass, calcification, or architectural distortion to suggest malignancy in either breast. IMPRESSION: 1. No mammographic evidence of malignancy. 2. Recommend routine screening mammography in one year. BI-RADS Category 1: Negative Reviewed, dictated and finalized at location B. S LO[facility]ER
--- OUTSIDE RECORDS SUMMARY | 2025-06-05 08:14 | XMS_ITS | Clinical Summary ---
Author Organization [facility] Address [address] [place] [address] Care Team Providers Care Agency Owner Name Role Phone Kike Heaton MD Primary Care Provider [phone] Source Comments [facility],non-owned Affiliates and Associated Physician Practices is amultiple site organization consisting of ambulatory clinics and hospital sitesin [place], [place], [place] and [place]. This disclosure is being madepursuant to the Care Everywhere program and may not contain all information available regarding this patient. 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
--- OUTSIDE RECORDS SUMMARY | 2025-06-05 08:14 | XMS_ITS | Clinical Summary ---
Author Organization [facility] Address [address] [place] [address] Care Team Providers Care Treasury Manager Name Role Phone Unavailable Primary Care Provider [...] Mammogram Screening 2021 COVID-19 Vaccine ( season) 2025 09/09/2020, 08/12/2020 Influenza Adult (#1) 2025 04/04/2020, 04/19/2019, 04/24/2018, Additional history exists DTaP, Tdap and Td Vaccines (2 - Td or Tdap) 12/08/2027 12/07/2017, 04/18/1985, 07/29/1982, Additional history exists Hepatitis A Vaccines Aged Out No long er eligible based on patient's age to complete this topic Meningococcal B Vaccine Aged Out No l [...]
--- OUTSIDE RECORDS SUMMARY | 2025-06-05 08:14 | XMS_ITS | Clinical Summary ---
Author Organization [facility] Address [address] [place] [address] Phone Care Team Providers Care Care Specialist Name Role Phone Unavailable Primary Care Provider [...] Cervical Cancer Screening (CCS) 2011 HPV/Cotest 2011 Influenza Immunization (#1) 04/01/202504/01, 04/24/2018, 10/04/2016 SARS-COV-2 Immunization ( season) 2025 09/09/2020, 08/12/2020 DTaP/Tdap/Td Immunization (6 - Td or Tdap) [...]
== END 2025-06-05 08:07 | disposition home or self-care (01) ==
LOC: ANHFOHIMG 08:08
PROVIDERS: PCP Student in an Organized Health Care Education/Training Program; Visit Provider Physician Assistant
DX: Z12.31 Encounter for screening mammogram for malignant neoplasm of breast (principal)
CPT/HCPCS: 77063; 77067

== ENCOUNTER 2025-07-19 09:57 | Outpatient (CLI) | payer OTHER, SELFPAY ==
--- OUTSIDE RECORDS SUMMARY | 2025-07-19 10:22 | XMS_ITS | Data Portability ---
Author Organization [facility], [place] Address [address] [place] [address] Assessment Encounter Date Assessment Date Assessment LastModified by Organization Details LastModified Time 12/22/2020 12/22/2020 Annual gynecological exam performed. Patient will come back in a year unless there are new symptoms. [email or web address] Not available 12/22/2020 10:56:56 Plan of Treatment Reminders Order Date Submit Date Provider Last Modified By Organization Details Last Modified Time Details Appointments None recorded. Lab urinalysis , dipstick 2020 021 [facility], [address], [place], [address], 10:32:08 test, urine 2020 021 [email or web address] [place], [address], [place], [address], 11:46:38 Referral None recorded. Procedures None recorded. Surgeries None recorded. Imaging MAMMO, screening, digital, bilateral 2020 021 [email or web address] [facility], [address] [address], [place], [address], 10:18:14 Medication Orders Macrobid 100 mg capsule 2020 021 [facility] 180, [address], [address], 10:37:49 Pyridium 100 mg tablet 2020 021 [facility] 435, [address], [address], 10:37:50 Slynd 4 mg (28) tablet 2020 021 [facility] 435, [address], [address], 10:37:45 Slynd 4 mg (28) tablet 2020 021 [email or web address] 1 [facility] 435, [address], [address], 11:46:38 Patient TargetsNo targets recorded. Patient InstructionsNo [...] douglas: Wilver Schwartz Colle cted: 12/22 1330 E [employer] Order ing Locat ion: [place] [facility] [...] as clini catrachito soto nted. Not Available [facility] (Lab) [address], [place], [address], 12/23/2020 17:50:09 12/23/19 21 12/22/2020 pregn miguel test, urine HCG negati ve Not Available [address], [place], [address], 12/22/2020 11:43:41 03/24/20 21 03/24/2021 URINA LYSIS , WITH MICRO SCOPI C color, urine Yellow colorl ess, light yellow , yellow , dark yellow , straw Not Available [facility] (Lab) [address] [facility], [place], [address], 03/27/2021 00:08:52 03/24/20 21 03/24/2021 URINA LYSIS , WITH MICRO SCOPI C clarity, urine Clear Not Available [facility] (Lab) [address] [facility], [place], [address], 03/27/2021 00:08:52 03/24/20 21 03/24/2021 URINA LYSIS , WITH MICRO SCOPI C glucose, urine Negati ve mg/dL negati ve Not Available [facility] (Lab) [address] [facility], [place], [address], 03/27/2021 00:08:52 03/24/20 21 03/24/2021 URINA LYSIS , WITH MICRO SCOPI C bilirubin, urine Negati ve mg/dL negati ve Not Available [facility] (Lab) [address] [facility], [place], [address], 03/27/2021 00:08:52 03/24/20 21 03/24/2021 URINA LYSIS , WITH MICRO SCOPI C ketones, urine Negati ve mg/dL negati ve Not Available [facility] (Lab) [address] [facility], [place], [address], 03/27/2021 00:08:52 03/24/20 21 03/24/2021 URINA LYSIS , WITH MICRO SCOPI C pH, urine 7.0 . 5.0-9. 0 Not Available [facility] (Lab) [address] [facility], [place], [address], 03/27/2021 00:08:52 03/24/20 21 03/24/2021 URINA LYSIS , WITH MICRO SCOPI C specific gravity, urine 1.017 . 1.001- 1.035 Not Available [facility] (Lab) [address] [facility], [place], [address], 03/27/2021 00:08:52 03/24/20 21 03/24/2021 URINA LYSIS , WITH MICRO SCOPI C blood, urine Modera te negati ve abnormal Not Available [facility] (Lab) [address] [facility], [place], [address], 03/27/2021 00:08:52 03/24/20 21 03/24/2021 URINA LYSIS , WITH MICRO SCOPI C protein, urine 30 mg/dL negati ve abnormal Not Available [facility] (Lab) [address] [facility], [place], [address], 03/27/2021 00:08:52 03/24/20 21 03/24/2021 URINA LYSIS , WITH MICRO SCOPI C urobilinogen , urine <2.0 mg/dL <2.0 Not Available [facility] (Lab) [address] [facility], [place], [address], 03/27/2021 00:08:52 03/24/20 21 03/24/2021 URINA LYSIS , WITH MICRO SCOPI C nitrite, urine Positi ve negati ve abnormal Not Available [facility] (Lab) [address] [place], [address], 03/27/2021 00:08:52 03/24/20 21 03/24/2021 URINA LYSIS , WITH MICRO SCOPI C leukocyte esterase, urine Trace negati ve abnormal Not Available [facility] (Lab) [address] [place], [address], 03/27/2021 00:08:52 03/24/20 21 03/24/2021 URINA LYSIS , WITH MICRO SCOPI C WBC, urine 10-14 /hpf none, 0-5 abnormal Not Available [facility] (Lab) [address] [facility], [place], [address], 03/27/2021 00:08:52 03/24/20 21 03/24/2021 URINA LYSIS , WITH MICRO SCOPI C RBC, urine 10-14 /hpf none, 0-2 abnormal Not Available [facility] (Lab) [address] [facility], [place], [address], 03/27/2021 00:08:52 03/24/20 21 03/24/2021 URINA LYSIS , WITH MICRO SCOPI C bacteria, urine Trace /hpf none abnormal Not Available [facility] (Lab) [address] [facility], [place], [address], 03/27/2021 00:08:52 03/24/20 21 03/24/2021 URINA LYSIS , WITH MICRO SCOPI C squamous epithelial cells, urine None /hpf none Not Available [facility] (Lab) [address] [facility], [place], [address], 03/27/2021 00:08:52 03/24/20 21 03/24/2021 URINA LYSIS , WITH MICRO SCOPI C mucus, urine Trace /hpf none, trace, few Not Available [facility] (Lab) [address] [facility], [place], [address], 03/27/2021 00:08:52 03/24/20 21 03/24/2021 CULTU RE: URINE result report SEE RESULT S BELOW abnormal Test: Cultu re: Urine Speci men Sourc e: Urine Voide d Speci men Type: Urine Speci men Date: 2020 4:19 PM Resul t Date: 2020 11:05 PM Resul t Statu s: Final resul t Abnor mal: Yes Resul emma Lab: [facility] [address] [facility] [address] Tel: CULTU RE ----- ----- ----- --- [...] <=2 ug/mL Susce ptibl e Not Available [facility] (Lab) [address], [place], [address], 03/27/2021 00:08:53 03/24/2003/24/2021 urina lysis , dipst ick Leukocytes + Not Available [facility] [address], [place], [address], 03/24/2021 10:31:14 03/24/20 21 03/24/2021 urina lysis , dipst ick Nitrite neg Not Available [place] [address], [place], [address], 03/24/2021 10:31:14 03/24/20 21 03/24/2021 urina lysis , dipst ick Urobilinogen neg Not Available [facility] [address], [place], [address], 03/24/2021 10:31:14 03/24/20 21 03/24/2021 urina lysis , dipst ick Protein 30 + Not Available [place] [address], [place], [address], 03/24/2021 10:31:14 03/24/20 21 03/24/2021 urina lysis , dipst ick pH 8 Not Available [place] [address], [place], [address], 03/24/2021 10:31:14 03/24/20 21 03/24/2021 urina lysis , dipst ick Blood +++ Not Available [place] [address], [place], [address], 03/24/2021 10:31:14 03/24/20 21 03/24/2021 urina lysis , dipst ick Specific Browning 1.005 Not Available [facility] [address], [place], [address], 03/24/2021 10:31:14 03/24/20 21 03/24/2021 urina lysis , dipst ick Ketone neg Not Available [place] [address], [place], [address], 03/24/2021 10:31:14 03/24/20 21 03/24/2021 urina lysis , dipst ick Bilirubin neg Not Available [facility] [address], [place], [address], 03/24/2021 10:31:14 03/24/20 21 03/24/2021 urina lysis , dipst ick Glucose neg Not Available [place] [address], [place], [address], 03/24/2021 10:31:14 03/24/20 21 03/24/2021 urina lysis , dipst ick Appearance cloudy Not Available [facility] [address], [place], [address], 03/24/2021 10:31:14 03/24/20 21 03/24/2021 urina lysis , dipst ick Color straw Not Available [place] [address], [place], [address], 03/24/2021 10:31:14 Result Notes None recorded. Problems Name Problem SNOMED Code Status Onset Date Resolution Date Notes Provider Name and Address Organization Details Recorded Time Zayra weaver medical examinat ion Completed 201012/22/2020 Gynecolog ical Examinati on;Record ed Elsewhere : No Locati on: [facility] So urce: EHR Chron ic: N Practic e ID: 0001 Bill able Time: 10:45:00 AM Munira negrete [facility] 10:59:24 Vaginiti s and vulvovag initis Completed 201012/22/2020 Vaginitis ;Recorded Elsewhere : No Locati on: [facility] So urce: EHR Chron ic: N Practic e ID: 0001 Bill able Time: 10:45:00 AM Munira negrete [facility] 10:59:37 Screenin g for malignan t neoplasm of cervix Completed 201012/22/2020 Screening for malignant neoplasms of the cervix;Re corded Elsewhere : No Locati on: [facility] So urce: EHR Chron ic: N Practic e ID: 0001 Bill able Time: 10:45:[address] [facility] 10:59:17 Threaten ed miscarri age [id number] Completed 201012/22/2020 Threatene d , antepartu m;Practic e ID: [address] [facility] 10:59:25 Malaise and fatigue [id number] Completed 201012/22/2020 Fatigue And Malaise;P ractice ID: [address] [facility] 10:59:03 Ill-defi nohemi intestin al infectio n Completed 201112/22/2020 No Show Fee;Pract ice ID: [address] [facility] 10:58:55 Pregnanc y test positive [id number] Completed 201212/22/2020 examinati on or test, positive result;Re corded Elsewhere : No Locati on: [facility] So urce: EHR Chron ic: N Practic e ID: 0001 Bill able Time: 08:30:[address] [facility] 10:59:11 Finding related to pregnanc y Completed 201212/22/2020 CERVICAL SHORTENIN G-ANTE;Re corded Elsewhere : No Locati on: [facility] So urce: EHR Chron ic: N Practic e ID: 0001 Bill able Time: 03:00:[address] [facility] 10:58:49 Uterine size for dates discrepa ncy [id number] Completed 201212/22/2020 UTERINE SIZE VALENTINA-ANTEP AR;Practi ce ID: 0001 Munira negrete, [facility] 10:59:34 Ultrason ography Completed 201212/22/2020 screening for malformat ion using ultrasoni cs;Record ed Elsewhere : No Locati on: [facility] So urce: EHR Chron ic: N Practic e ID: 0001 Bill able Time: 04:00:00 PM Munira negrete [facility] 10:59:29 Antenata l screenin g Completed 201212/22/2020 screening for malformat ion using ultrasoni cs;Record ed Elsewhere : No Locati on: [facility] So urce: EHR Chron ic: N Practic e ID: 0001 Bill able Time: 04:00:[address] [facility] 10:58:27 Congenit al malforma tion [id number] Completed 201212/22/2020 screening for malformat ion using ultrasoni cs;Record ed Elsewhere : No Locati on: [facility] So urce: EHR Chron ic: N Practic e ID: 0001 Bill able Time: 04:00:00 PM Munira negrete [facility] 10:58:39 Routine antenata l care Completed 201212/22/2020 Supervisi on of other normal ;Recorded Elsewhere : No Locati on: [facility] So urce: EHR Chron ic: N Practic e ID: 0001 Bill able Time: 02:00:00 PM Munira Torres [facility] 10:59:15 Cervical incompet ence with antenata l problem [id number] Completed 201212/22/2020 Incompete nt Cervix Antepartu m Condition ;Recorded Elsewhere : No Locati on: [facility] So urce: EHR Chron ic: Y Practic e ID: 0001 Bill able Time: 02:00:00 PM Munira negrete [facility] 10:58:31 Prolapse of female genital organs [id number] Completed 201212/22/2020 Incompete nce or weakening of pubocervi tere tissue;Pr actice ID: 0001 [facility] 10:59:12 Deliveri es by [id number] Completed 201212/22/2020 delivery, without mention of indicatio n, unspecifi ed as to episode of care;Prac francis ID: [address] [facility] 10:58:40 Female genital organ symptoms [id number] Completed 201212/22/2020 Unspecifi ed symptom associate d with female genital organs;Pr actice ID: [address] [facility] 10:58:47 Complica tion related to pregnanc y Completed 201212/22/2020 Unspecifi ed antepartu m complicat ion;Pract ice ID: [address] [facility] 10:58:35 Known OR suspecte d abnormal ity affectin g manageme nt of mother Completed 201212/22/2020 Unspecifi ed suspected abnormali ty, affecting managemen t of mother, unspecifi ed as to episode of care;Kirill rded Elsewhere : No Locati on: [facility] So urce: EHR Chron ic: N Practic e ID: 0001 Bill able Time: 11:00:[address] [facility] 10:59:01 High risk pregnanc y care Completed 201212/22/2020 Supervisi on of unspecifi ed high-risk ;Recorded Elsewhere : No Locati on: [facility] So urce: EHR Chron ic: Y Practic e ID: 0001 Bill able Time: 10:30:00 AM Munira Torres null, [facility] 10:58:50 Complica tion of pregnanc y, childbir th and/or puerperi um [id number] Completed 201212/22/2020 Other current condition s classifia ble elsewhere of mother, antepartu m;Practic e ID: 0001 Munira negrete, [facility] 10:58:34 Threaten ed prematur e labor - not delivere d [id number] Completed 201212/22/2020 Threatene d premature labor, antepartu m;Practic e ID: 0001 Munira negrete, [facility] 10:59:27 Cervical incompet ence [id number] Completed 201212/22/2020 Incompete nce of cervix;Pr actice ID: 0001 Munira negrete, [facility] 10:58:29 Uterine scar from previous surgery in pregnanc y, childbir th and the puerperi um - delivere d [id number] Completed 201212/22/2020 Previous delivery, antepartu m condition or complicat ion;Pract ice ID: 0001 Munira negrete, [facility] 10:59:33 Single live from singleto n pregnanc y [id number] Completed 201212/22/2020 Mother with single liveborn; Practice ID: 0001 Munira negrete, [facility] 10:59:19 Postoper ative follow-u p visit Completed 201212/22/2020 Follow-up examinati on, following unspecifi ed surgery;R ecorded Elsewhere : No Locati on: [facility] So urce: EHR Chron ic: N Practic e ID: 0001 Bill able Time: 03:00:00 PM Munira negrete [facility] 10:59:04 Postpart um care Completed 201312/22/2020 Post Followup; Recorded Elsewhere : No Locati on: [facility] So urce: EHR Chron ic: N Practic e ID: 0001 Bill able Time: 03:15:[address] [facility] 10:59:06 Insertio n of intraute rine contrace ptive device Completed 201312/22/2020 INSERTION OF IUD;Recor ded Elsewhere : No Locati on: [facility] So urce: EHR Chron ic: N Practic e ID: 0001 Bill able Time: 03:00:00 PM Munira [facility] 10:58:57 Family planning surveill ance Completed 201312/22/2020 Contracep tive surveilla nce, unspecifi ed;Record ed Elsewhere : No Locati on: [facility] So urce: EHR Chron ic: N Practic e ID: 0001 Bill able Time: 01:45:00 PM Munira [facility] 10:58:46 Uses IUD (intraut erine device) contrace ption [id number] Completed 201312/22/2020 Surveilla nce of intrauter ine contracep tive device;Pr actice ID: 0001 Munira [facility] 10:58:58 Conducti on disorder of the heart [id number] Completed 201312/22/2020 Bradycard ia;Record ed Elsewhere : No Locati on: [facility] So urce: EHR Chron ic: N Practic e ID: 0001 Bill able Time: 03:02:35 PM Munira [facility] 10:58:37 Human papillom a virus infectio n [id number] Completed 201412/22/2020 HPV infection ;Recorded Elsewhere : No Locati on: [facility] So urce: EHR Chron ic: N Practic e ID: 0001 Bill able Time: 10:30:00 AM Munira ngerete [facility] 10:58:52 Adult health examinat ion Completed 201412/22/2020 Routine general medical examinati on at a health care facility; Practice ID: 0001 Munira Torres [facility] 10:58:[address] Concept Completed 201712/22/2020 Encntr for hot mill roller exam (general) (routine) w/o abn findings; Recorded Elsewhere : No Locati on: [facility] So urce: EHR Chron ic: N Practic e ID: 0001 Bill able Time: 01:00:00 PM Munira Torres [facility] 10:59:22 Acetonur ia [id number] Completed 201712/22/2020 Acetonuri a;Recorde d Elsewhere : No Locati on: [facility] So urce: EHR Chron ic: N Practic e ID: 0001 Bill able Time: 01:00:00 PM Munira Torres [facility] 10:58:24 Uses combined oral contrace ption [id number] Completed 201812/22/2020 Encounter for initial prescript ion of contracep tive pills;Rec orded Elsewhere : No Locati on: [facility] So urce: EHR Chron ic: N Practic e ID: 0001 Bill able Time: 03:00:00 PM Munira Torres [facility] 10:58:32 Removal of intraute rine device Completed 201812/22/2020 Encounter for removal of intrauter ine contracep tive device;Pr actice ID: 0001 Munira Torres [facility] 10:59:[address] Concept Completed 201812/22/2020 Encntr for general adult medical exam w/o abnormal findings; Recorded Elsewhere : No Locati on: [facility] So urce: EHR Chron ic: N Practic e ID: 0001 Bill able Time: 02:30:00 PM Munira Torres [facility] 10:59:21 Evaluati on finding Completed 201812/22/2020 Hematuria , unspecifi ed;Record ed Elsewhere : No Locati on: [facility] So urce: EHR Chron ic: N Practic e ID: 0001 Bill able Time: 08:45:00 AM Munira Torres [facility] 10:58:42 Urinary tract infectio us disease [id number] Completed 201812/22/2020 UTI;Recor ded Elsewhere : No Locati on: [facility] So urce: EHR Chron ic: N Practic e ID: 0001 Bill able Time: 08:45:[address] [facility] 10:59:30 Pregnanc y test negative [id number] Completed 201812/22/2020 Encounter for test, result negative; Recorded Elsewhere : No Locati on: [facility] So urce: EHR Chron ic: N Practic e ID: 0001 Bill able Time: 10:30:00 AM Munira Torres [facility] 10:59:08 Human papillom avirus deoxyrib onucleic acid detected , high risk on cervical specimen [id number] Completed 201812/22/2020 Cervical high risk HPV DNA test positive; Recorded Elsewhere : No Locati on: [facility] So urce: EHR Chron ic: N Practic e ID: 0001 Bill able Time: 10:30:00 AM Munira Torres [facility] 10:58:54 Evaluati on finding Completed 201812/22/2020 Unsp abnormal cytolog findings in specmn from cervix uteri;Rec orded Elsewhere : No Locati on: [facility] So urce: EHR Chron ic: N Practic e ID: 0001 Bill able Time: 10:30:00 AM [facility] 1 10:58:44 Problem Notes None recorded. Procedures Surgical History Date Name Laterality Status Provider Name and Address Organization Details Recorded Time 1 Date of Last Pap Smear completed [facility] 03/24/2021 10:32:39 9 Colposcopy completed [facility] 03/24/2021 10:34:50 3 delivery completed [facility] 12/22/2020 11:10:15 9 completed [facility] 12/22/2020 10:57:18 9 Date of Last Colonoscopy completed [facility] 12/22/2020 10:57:18 8 Caesarean Section completed [facility] 12/22/2020 11:09:59 Colonoscopy completed [facility] 12/22/2020 10:57:30 Imaging Results None recorded. Procedure Notes None recorded. Medical Equipment None Reported. Allergies Allergen ID Allergen Name Allergen Category Reaction Reaction Severity Criticality Documentation Date Start Date Code Code System Note Provider Name and Address Organization Details Recorded Time 30008 Product containin g penicilli n (product) medicatio n Not available Not available Not available 07/18/2020 98632 8001 SNOMED Comme nt: Locat ion: [facility]; [facility] Available [facility] 14:20:49 Medications Name Sig Start Date Stop Date Status Note LastModified by Organization Details LastModified Time Prometriu m 200 mg capsule take 1 capsule (200MG) by Vaginal route every day 01/14 completed Prescrib ed Elsewher e: No Locat ion: Bonita jiang [facility] odify By: tgingric h Encoun ter DateTime : 01/04/20 13 04:15:00 PM Not Available Not Available Not Available Mirena 21 mcg/24 hr (up to 8 years) 52 mg intrauter ine device 1 iud for 5 years 10/31 completed Prescrib ed Elsewher e: No Locat ion: Bonita jiang [facility] odify By: [email or web address] Encount er DateTime : 11/01/19 19 03:00:00 PM Not Available Not Available Not Available Pentasa 250 mg capsule,c ontrolled release take 4 capsule by oral route 4 times every day 07/04 completed Prescrib ed Elsewher e: Yes Loca tion: Bonita jiang [facility] odify By: vicky luna DateTime : 04/20/20 11 10:45:00 AM [...] Elsewher e: Yes Loca tion: [facility] jiang [facility] odify By: inga luna DateTime : [...] Elsewher e: No Locat ion: Bonita jiang [facility] odify By: vicky luna DateTime : 02/07/20 13 10:34:01 AM Not Available Not Available Not Available Metrogel Vaginal 0.75 % (37.5 mg/5 gram) insert 1 applicat orful (37.5MG) by vaginal route every day at bedtime 07/04 completed Prescrib ed Elsewher e: No Locat ion: Bonita jiang [facility] odify By: vicky Jiang ncounter DateTime : 04/28/20 11 04:41:13 PM Not Available Not Available Not Available Zoloft 50 mg tablet take 1 tablet (50MG) by oral route every day 07/04 completed Prescrib ed Elsewher e: No Locat ion: Bonita jiang [facility] odify By: vicky Jiang ncounter DateTime [...] Elsewher e: No Locat ion: Bonita jiang [facility] odify By: francoise Chungo unter DateTime [...] ed Elsewher e: No Locat ion: [facility] odify By: regan Jiang ncounter DateTime : 08/12/19 15 10:30:00 AM Not Available Not Available Not Available [place] 5 mg-325 mg tablet take 1 tablet by oral route every 6 hours as needed for pain 08/02 completed Prescrib ed Elsewher e: No Locat ion: Bonita jiang [facility] odify By: francoise vila Enco unter DateTime : 06/26/20 13 01:30:00 PM Not Available Not Available Not Available fluticaso ne propionat e 50 mcg/actua tion nasal spray,os[employer] pension SHAKE LIQUID AND USE 1 TO 2 SPRAYS IN EACH NOSTRIL TWICE DAILY active Not Available Not Available No t Available Xopenex 0.31 mg/3 mL solution for nebulizat ion 09/28 completed Prescrib ed Elsewher e: Yes Loca tion: [facility] odify By: inga Jiang ncounter DateTime : 04/20/20 11 10:45:00 AM Not Available Not Available Not Available Bactrim DS 800 mg-160 mg tablet take 1 tablet by oral route every 12 hours 10/31 completed Prescrib ed Elsewher e: No Locat ion: [facility] odify By: [email or web address] Encount er DateTime : 09/28/19 18 01:00:00 [...] Elsewher e: No Locat ion: [facility] odify By: marsha quinonez DateTime : 07/18/20 19 03:22:03 PM Not Available Not Available Not Available Quasense 0.15 mg-30 mcg (91) tablets,3 month dose pack take 1 tablet by oral route every day 12/22 completed Prescrib ed Elsewher e: No [facility] By: marsha quinonez DateTime : 01/30/20 19 09:32:18 AM Not Available Not Available Not Available Symbicort 160 mcg-4.5 mcg/actua tion HFA aerosol inhaler INHALE 2 PUFFS BY MOUTH TWICE DAILY active Not Available Not Available No t Available Fish Oil 360 mg-1,200 mg capsule 08/12 completed Prescrib ed Elsewher e: Yes Loca tion: [facility] odify By: ann quinonez DateTime : 04/20/20 11 10:45:00 AM Not Available Not Available Not Available Triveen-D uo DHA 29 mg-1 mg-400 mg oral pack take 1 by Oral route every day 08/12 completed Prescrib ed Elsewher e: No Locat ion: [facility] odify By: ann quinonez DateTime : 04/04/20 13 02:36:58 PM Not Available Not Available Not Available Slynd 4 mg (28) tablet Take 1 tablet every day by oral route. 2023 active Not Available Not Available Not Avai lable Vitals Date Recorded Systolic And Diastolic Provider Name and Address Organization Details Last Updated DateTime 12/22/2020 133/80 mm[Hg] Jennifer Atkins [facility] [address], [place], [address], [facility] 12/22/2020 11:40:34 Date Recorded Body height Body mass index (BMI) Body weight Provider Name and Address Organization Details Last Updated DateTime 12/22/2020 168.91 cm 34.3 kg/m2 73353.95 g Munira Torres [facility] 12/22/2020 11:07:32 Date Recorded Systolic And Diastolic Provider Name and Address Organization Details Last Updated DateTime 03/24/2021 126/83 mm[Hg] Jennifer Atkins [facility] [address], [place], [address], [facility] 03/24/2021 10:40:55 Date Recorded Body height Body mass index (BMI) Body weight Provider Name and Address Organization Details Last Updated DateTime 03/24/2021 168.91 cm 34.7 kg/m2 87466.14 g Munira Torres [facility] 03/24/2021 10:27:10 Social History Question Answer Notes LastModified by Organizat ion Details LastModified Time Tobacco Smoking Status Never Smoker Munira Torres [facility] 03/24/2021 10:27:21 Do You Have An [...] Or The Highest Degree You Have Received? [id number] Information not available 03/24/2021 Are There Any [...] anxious, or unable to sleep at night)? [id number] Information not available 03/24/2021 Family History Relationship [...] available 2020 10:57:14 Medical History Condition Response Dermatologic Disorders Y Asthma Y Allergies (Food, seasonal, environmental ) Y History of abnormal pap Y GI Problems Y Gynecological History Statement/Question [...] ICD10 Code Diagnosis IMO Codes Diagnosis Note [id number] Jennifer Atkins [facility] [address] [address] 12/22/2020 10:51:07 12/22/2020 12:01:19 Gynecologic examination 04824792 Z01.419 Take Calcium with Vitamin D 1200mg [...] screening Mammo ordered Contracept ion care management [id number] Z30.9 We agreed to switch to a [...] signed. Pt verbalized understand ing. Screening mammography 953106 Z12.31 Screening procedure 2012 5006 Z13.9 [id number] PERRY [facility] [address] [address] 03/24/2021 09:52:09 03/24/2021 12:02:20 Urinary symptoms 136227010 R39.9 Urine sent for culture & microscopy Rx sent Contracept ion care management [id number] Z30.9 Patient is here today for a [...] this patient s visit, including available hand keyboard instrument tuner upon arrive, temperatur e check and being [...] Vieira Member ID Guarantor Name 03/23/2021 1 [facility] PRIOR TO 01/29/2021 (MEDICAID REPLACEMENT - HMO) Radha Roles [id number] Radha Roles 03/23/2021 1 [facility] ON OR AFTER 01/29/21 (MEDICAID REPLACEMENT - HMO) Radha Roles [id number] Radha Roles Notes Date Note Type Note [...] dysplasia, andneeds to schedule mammogram. Jennifer Atkins [facility] [address], [place], [address], [facility] 12/22/2020 11:48:00 1 text/html ROS as [...] but not concerned with STD. Jennifer Atkins [facility] [address], [place], [address], [facility] 03/24/2021 10:43:11 OBGyn Episode Ob Episode Information Episode Created Date Number of Fetuses Patient Bloodtype Patient rh Status Prepregnancy Weight lbs Domestic Partner Domestic Partner Phone Father Name Grooming Salon Manager Status 12/23/19 21 1 CLOSED Fetus Data [...] Domestic Partner Domestic Partner Phone Father Name Grooming Salon Manager Status 12/23/19 21 1 CLOSED Fetus Data [...]
--- OUTSIDE RECORDS SUMMARY | 2025-07-19 10:22 | XMS_ITS | Clinical Summary ---
Author Organization [facility] Address [address] [place] [address] Care Team Providers Care Income Tax Expert Name Role Phone Kike Heaton MD Primary Care Provider [phone] [facility],non-owned Affiliates and Associated Physician Practices is amultiple site organization consisting of ambulatory clinics and hospital sitesin [place], [place], [place] and [place]. This disclosure is being madepursuant to the Care Everywhere program and may not contain all information available regarding this patient. 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
--- OUTSIDE RECORDS SUMMARY | 2025-07-19 10:22 | XMS_ITS | Clinical Summary ---
Author Organization [facility] Address [address] [place] [address] Phone Care Team Providers Care Ground Intelligence Officer Name Role Phone Unavailable Primary Care Provider [...] Comments Hepatitis C Virus (HCV) Screening 1981 Varicella Immunization (1 of 2 - 13+ 2-dose series) 1994 Hepatitis B Immunization (1 of 3 - 19+ 3-dose series) 01/08/2000 Pneumococcal Immunization Combined (1 of 2 - PCV) 01/08/2000 Pap Smear 2002 Cervical Cancer Screening (CCS) 2011 HPV/Cotest 2011 Influenza Immunization (#1) 04/01/202504/01, 04/24/2018, 10/04/2016 SARS-COV-2 Immunization (3 - 2025-26 season) 2025 09/09/2020, 08/12/2020 DTaP/Tdap/Td Immunization (6 - Td or Tdap) 12/08/2027 12/07/2017, 04/18/1985, 07/29/1982, Additional history exists Td Immunization Every 10 Years (Adults With 1 Tdap) 12/08/2027 12/07/2017 Respiratory Syncytial Virus (RSV) Immunization (Adult) (1 - 1-dose 75+ series) 01/08/2056 Human Papillomavirus (HPV) Immunization (No Doses Required) Completed Meningococcal Immunization (ACWY) Aged Out No longer eligible based on patient's age to complete this topic Rotavirus Immunization Aged Out No lo nger eligible based on patient's age to complete this topic Insurance MEDICAID [employer]
== END 2025-07-19 09:58 | disposition home or self-care (01) ==
LOC: ANHAUDIO 09:57
PROVIDERS: PCP Student in an Organized Health Care Education/Training Program; Visit Provider Otolaryngology
DX: H91.90 Unspecified hearing loss, unspecified ear (principal)
CPT/HCPCS: 92557; 92567